=== PATIENT | female | born 1970 | race African-American/Black ===

== ENCOUNTER 2018-09-10 16:06 | Emergency (ER) | payer OTHER, SELFPAY ==
--- OUTSIDE RECORDS SUMMARY | 2018-09-10 16:12 | XMS REPORT | Clinical Summary ---
:1970 Author Organization [facility] Address [address] [place] [address] Care Team Providers Name Role Phone Carole Valverde MD Primary Care Provider Allergies Active Allergy Reactions Severity Noted Date Comments Morphine Other (See Comments) 10/26/2016 Cardiac event, needed CPR. Sulfamethoxazole-Trime Diarrhea, Nausea And Medium 10/07/2014 thoprim Vomiting Medications Medication Sig Dispensed Refills Start Date End Date Status gabapentin Take 1 capsule 0 01/15/2017 Active (NEURONTIN) 300 mg by mouth. capsule HYDROcodone-acetami Take 1 tablet by 0 04/01/2017 Active nophen (NORCO) mouth every 8 10-325 mg per (eight) hours as tablet needed. clobetasol Apply 1 0 Active (TEMOVATE) 0.05 % application ointment topically as needed. efinaconazole 10 % Apply daily to 8 mL 1 04/05/2017 Active solution with affected toenail applicatorIndicatio 48 weeks ns: Onychomycosis of right great toe cholecalciferol, 2 times a week 8 tablet 3 04/09/2017 Active vitamin D3, 50,000 unit tablet TiZANidine TAKE 1 CAPSULE 0 08/18/2017 Active (ZANAFLEX) 2 MG BY MOUTH AT capsule NIGHT FOR 90 DAY(S) olmesartan Take 1 tablet 30 tablet 1 08/25/2018 Active (BENICAR) 20 MG (20 mg total) by 0 tablet mouth daily. tiZANidine Take 1-2 tablets 0 01/29/2017 Discontinued (ZANAFLEX) 2 MG by mouth nightly 8 tablet as needed. valsartan (DIOVAN) Take 1 tablet 30 tablet 2 07/02/2017 Discontinued 40 MG tablet (40 mg total) by 8 mouth daily. valsartan (DIOVAN) TAKE 1 TABLET 30 tablet 1 10/21/2017 Discontinued 40 MG tablet (40 MG TOTAL) BY 8 MOUTH DAILY. valsartan (DIOVAN) Take 1 tablet 30 tablet 3 04/23/2018 Discontinued 40 MG (40 mg total) by 8 tabletIndications: mouth daily. Essential hypertension losartan (COZAAR) Take 1 tablet 30 tablet 1 06/27/2018 Discontinued 50 MG tablet (50 mg total) by 8 mouth daily. losartan (COZAAR) Take 1 tablet 30 tablet 1 06/30/2018 Discontinued 50 MG tablet (50 mg total) by 9 mouth daily. Active Problems Problem Noted Date Abnormal mammogram 09/12/2017 History of colon cancer 06/11/2017 Axillary adenopathy 06/11/2017 Discharge from right nipple 06/11/2017 Rotator cuff tendinitis, left 05/24/2017 Low back pain 05/24/2017 Rotator cuff tendinitis 04/19/2017 Trochanteric bursitis of left hip 04/19/2017 Multiple joint pain 04/19/2017 Breast lump in female Overview: right History of rectal cancer Wears glasses Teeth missing Immunizations up to date Encounters Date Type Specialty Care Team Description 08/25/2018 Telephone Internal Medicine Carole Valverde MD 06/30/2018 Refill Family Carole Alcaraz MD 06/26/2018 Telephone Family Medicine Carole Valverde MD 05/20/2018 Telephone Family Medicine Carole Valverde MD 05/19/2018 Telephone Family Medicine Carole Valverde Malignant neoplasm of MD Carlo colon, unspecified part of colon (HCC) (Primary Dx) 04/23/2018 Office Visit Family Medicine Carole Valverde Seasonal allergic rhinitis, unspecified trigger (Primary Dx); MD Carlo Essential hypertension 12/17/2017 Telephone Family Carole Alcaraz MD 10/20/2017 Refill Family Medicine Carole Valverde MD 10/09/2017 Telephone Family Medicine Carole Valverde Closed fracture of left wrist, initial encounter (Primary Dx); MD Carlo Malignant neoplasm of colon, unspecified part of colon; Multiple joint pain; Neuropathy 09/12/2017 Office Visit General Surgery Carla Finch Abnormal mammogram (Primary Dx); MD Chandni Axillary adenopathy after 09/09/2017 Immunizations Name Dates Previously Given Next Due Pneumococcal Conjugate 13-Valent 08/14/2016 Tdap 08/14/2016 Family History Medical History Relation Name Comments Breast cancer Cousin Paternal Breast cancer Cousin Paternal Cancer Father Jerzy Pantoja ? type Arthritis Mother Breast cancer Paternal Aunt Mental retardation Sister Relation Name Status Comments Cousin Cousin Father Jerzy Pantoja Mother Alive Paternal Aunt Sister Social History Tobacco Use Types Packs/Day Years Used Date Never Smoker Smokeless Tobacco: Never Used Tobacco Cessation: Counseling Given: No Alcohol Use Drinks/Week oz/Week Comments No Sex Assigned at Date Recorded Not on file Job Start Date Occupation Industry Not on file Not on file Not on file Travel History Travel Start Travel End No recent travel history available. Last Filed Vital Signs Vital Sign Reading Time Taken Blood Pressure 155/96 04/23/2018 8:44 AM CDT Pulse 69 04/23/2018 8:44 AM CDT Temperature 36.6 C (97.9 F) 04/23/2018 8:44 AM CDT Respiratory Rate - - Oxygen Saturation 98% 04/23/2018 8:44 AM CDT Inhaled Oxygen Concentration - - Weight 90.3 kg (199 lb) 04/23/2018 8:44 AM CDT Height 166.4 cm (5' 5.5") 04/23/2018 8:44 AM CDT Body Mass Index 32.61 04/23/2018 8:44 AM CDT Plan of Treatment Date Type Specialty Care Team Description 09/24/2018 Office Visit Family Medicine Carole Valverde MD [address] [facility] [address] [place] [address] Health Maintenance Due Date Last Done Comments CERVICAL CANCER SCREENING 1991 INFLUENZA VACCINE 02/19/2018 Results Not on fileafter 09/09/2017 Insurance Payer Benefit Plan / Group Subscriber ID Type Phone Address [employer] [facility] xxxxxxxxxxxx HMO Advance Directives Patient has advance care planning documents on file. For more information, please contact:Parveen Mallory[address] [place] [address]
--- NOTE | 2018-09-10 17:58 | RAD REPORT ---
EXAM DESCRIPTION: CT - Head Brain Wo Cont - 09/10/2018 5:41 pm CLINICAL HISTORY: HEADACHE COMPARISON: Head C Spine Cap W Con dated 05/15/2017HEAD BRAIN W O CONTRAST dated 08/27/2012; HEAD BRA IN W O CONTRAST dated 09/28/2011 TECHNIQUE: All CT scans are performed using dose optimization technique as appropriate and may inclu de automated exposure control or mA/KV adjustment according to patient size. FINDINGS: No intracranial hemorrhage, hydrocephalus or extra-axial fluid collection.No areas of brai n edema or evidence of midline shift. The paranasal sinuses and mastoids are clear. The calvarium is intact. IMPRESSION: No acute intracranial abnormality.
[2018-09-10] MEDS ORDERED: DIAZEPAM 5 MG TABLET ONE (18:35)
[2018-09-10] MEDS ORDERED: KETOROLAC 30 MG/ML INJ ONE (18:36)
--- NOTE | 2018-09-10 19:26 | ER ---
Nurse's Notes [facility] Name: Trisha Ashton Age: 48 yrs Sex: Female : 1970 Arrival Date: 09/10/2018 Time: 16:08 Bed 27 Private MD: Out, [facility] Diagnosis: Strain of muscle, fascia and tendon at neck level;Strain of muscle and tendon of back wall of thorax;Headache Presentation: 09/10 16:10 Presenting complaint: Patient states: i started with a headache 2 days ago, it has tw2 gotten worse, it goes down into my neck into my spine into my shoulders and neck, worse in the left side, tingling down into my left, when i breath deep it hurts in between my shoulder blades. Transition of care: patient was not received from another setting of care. Onset of symptoms was September 10, 2018. Risk Assessment: Do you want to hurt yourself or someone else? Patient reports no desire to harm self or others. Initial Sepsis Screen: Does the patient meet any 2 criteria? No. Patient's initial sepsis screen is negative. Does the patient have a suspected source of infection? No. Patient's initial sepsis screen is negative. Care prior to arrival: None. 16:10 Method Of Arrival: Ambulatory tw2 16:10 Acuity: GARRETT 3 tw2 Triage Assessment: 16:12 Headache History: The patient has had previous headaches and this one is similar to tw2 previous episodes. General: Appears uncomfortable, Behavior is calm, cooperative, appropriate for age. Pain: Pain currently is 9 out of 10 on a pain scale. Pain began 2-3 days ago. Also complains of nausea. Neuro: Level of Consciousness is awake, alert, obeys commands, Oriented to person, place, time, situation, Reports dizziness, headache lightheaded. 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 - Social history:: Smoking status: Patient/guardian denies using tobacco. - Ebola Screening: : Patient denies travel to an Ebola-affected area in the 21 days before illness onset. Screenin:30 Abuse screen: Denies threats or abuse. Denies injuries from another. Nutritional sg screening: No deficits noted. Tuberculosis screening: No symptoms or risk factors identified. Never had TB. Fall Risk None identified. Assessment: 16:30 General: Appears in no apparent distress. comfortable, well groomed, well developed, sg well nourished, Behavior is calm, cooperative, appropriate for age. Pain: Complains of pain in head Pain does not radiate. Quality of pain is described as aching, sharp. Neuro: Level of Consciousness is awake, alert, obeys commands, Oriented to person, place, time, situation, Sql Architect are equal bilaterally Moves all extremities. Full function Gait is steady, Speech is normal, Facial symmetry appears normal, Reports headache in entire frontal area, photophobia. Cardiovascular: Capillary refill is brisk in bilateral fingers Patient's skin is warm and dry. Chest pain is denied. Respiratory: Airway is patent Respiratory effort is even, unlabored, Respiratory pattern is regular, symmetrical. GI: No signs and/or symptoms were reported involving the gastrointestinal system. : No signs and/or symptoms were reported regarding the genitourinary system. EENT: No signs and/or symptoms were reported regarding the EENT system. Derm: Skin is pink, warm \\T\\ dry. Musculoskeletal: No signs and/or symptoms reported regarding the musculoskeletal system. 17:30 Reassessment: Patient appears in no apparent distress at this time. Patient and/or sg family updated on plan of care and expected duration. Pain level reassessed. pt family, spouse remains at bedside at this time, awaiting results, awaiting new orders, will continue to monitor. 18:10 Reassessment: Brad MARK at bedside updating pt on POC and results, awaiting orders sg at this time. 18:30 Reassessment: pt reports " well i guess we are going to have to do some rearranging, sg since no one ever came and did an IV." pt educated that no orders were received to initiate IV access, pt states " Oh yes, there was order to start IV before I went to go down for CT." pt offered pain medication as ordered, informed of pt rights to refuse medications as ordered, pt stated "oh no, im gonna take the medicines." Charge nurse notified. 19:43 Reassessment: Patient appears in no apparent distress at this time. Patient is alert, aa1 oriented x 3, equal unlabored respirations, skin warm/dry/pink. Discussed d/c \\T\\ f/u instructions with pt \\T\\ spouse; denies questions or concerns at this time Patient states feeling better. Vital Signs: 16:13 BP 120 / 72; Pulse 58; Resp 16; Temp 97.8(TE); Pulse Ox 100% on R/A; Weight 88.45 kg tw2 (R); Pain 9/10; 19:43 BP 123 / 69; Pulse 61; Resp 16; Temp 97.9; Pulse Ox 100% on R/A; Pain 5/10; aa1 ED Course: 16:08 Patient arrived in ED. mr 16:09 Out, [facility] is Private Physician. mr 16:12 Triage completed. tw2 16:13 Arm band placed on. tw2 16:30 Patient has correct armband on for positive identification. Bed in low position. Pulse sg ox on. NIBP on. 16:47 Ruslan Castro NP is PHCP. pm1 16:47 Stefan Cannon MD is Attending Physician. pm1 17:20 Momo Bolanos, JENNIFER is Primary Nurse. sg 17:[address] Scan. sg 17:42 CT Head Brain wo Cont In Process Unspecified. EDMS 17:43 CT completed. Patient tolerated procedure well. Patient moved back from CT. nj 19:43 No provider procedures requiring assistance completed. Patient did not have IV access aa1 during this emergency room visit. Administered Medications: 18:29 Drug: Valium 5 mg Route: PO; sg 19:42 Follow up: Response: No adverse reaction; Pain is decreased aa1 18:30 Drug: TORadol 60 mg Route: IM; Site: right deltoid; sg 19:42 Follow up: Response: No adverse reaction; Pain is decreased aa1 Outcome: 19:25 Discharge ordered by . pm1 19:43 Discharged to home ambulatory, with significant other. aa1 19:43 Condition: good 19:43 Discharge instructions given to patient, significant other, Instructed on discharge instructions, follow up and referral plans. medication usage, Demonstrated understanding of instructions, follow-up care, medications, Prescriptions given X 2. 19:45 Patient left the ED. aa1 Signatures: Dispatcher [employer] EDMS Momo Bolanos RN RN sg Kern, Alissa, RN RN aa1 Joaquina Soriano Patrick, ANALYTICAL RESEARCH PROGRAM MANAGER ANALYTICAL RESEARCH PROGRAM MANAGER pm1 Cheryle Bridges RN RN tw2 Forrest Riley
--- NOTE | 2018-09-10 19:26 | EDPHYS ---
Physician Documentation [facility] Name: Trisha Ashton Age: 48 yrs Sex: Female : 1970 Arrival Date: 09/10/2018 Time: 16:08 Bed 27 Private MD: Out, [facility] ED Physician Stefan Cannon HPI: 09/10 18:30 This 48 yrs old Black Female presents to ER via Ambulatory with complaints of Headache, pm1 Dizziness, Numbness Of Arm. 18:30 The patient complains of pain to the left base of the skull and right base of the pm1 skull. The patient describes the headache as aching, constant. 18:30 Onset: The symptoms/episode began/occurred 2 day(s) ago. Associated signs and symptoms: pm1 Pertinent negatives: dizziness, fever, neck stiffness, Photophobia rash, sinus congestion, sinus tenderness, vision changes, vision loss, vomiting, weakness, vertigo. Severity of symptoms: in the emergency department the pain is unchanged. Headache History: Denies prior headaches. The symptoms are alleviated by remaining still, the symptoms are aggravated by Turning head to side to side. Worse with moving head to right side. The patient has not experienced similar symptoms in the past. The patient has not recently seen a physician. 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 - Social history:: Smoking status: Patient/guardian denies using tobacco. - Ebola Screening: : Patient denies travel to an Ebola-affected area in the 21 days before illness onset. ROS: 18:30 Constitutional: Negative for fever, chills, and weight loss, Eyes: Negative for injury, pm1 pain, redness, and discharge, ENT: Negative for injury, pain, and discharge. 18:30 Cardiovascular: Negative for chest pain, palpitations, and edema, Respiratory: Negative for shortness of breath, cough, wheezing, and pleuritic chest pain, Abdomen/GI: Negative for abdominal pain, nausea, vomiting, diarrhea, and constipation. 18:30 : Negative for injury, bleeding, discharge, and swelling, MS/Extremity: Negative for injury and deformity, Skin: Negative for injury, rash, and discoloration, Neuro: Negative for headache, weakness, numbness, tingling, and seizure. 18:30 Neck: Positive for pain with movement, Pain, Negative for stiffness, swollen nodes. 18:30 Back: Positive for of the left trapezius and right trapezius, Pain. Exam: 18:30 Constitutional: This is a well developed, well nourished patient who is awake, alert, pm1 and in no acute distress. Head/Face: Normocephalic, atraumatic. Eyes: Pupils equal round and reactive to light, extra-ocular motions intact. Lids and lashes normal. Conjunctiva and sclera are non-icteric and not injected. Cornea within normal limits. Periorbital areas with no swelling, redness, or edema. ENT: Nares patent. No nasal discharge, no septal abnormalities noted. Tympanic membranes are normal and external auditory canals are clear. Oropharynx with no redness, swelling, or masses, exudates, or evidence of obstruction, uvula midline. Mucous membranes moist. 18:30 Chest/axilla: Normal chest wall appearance and motion. Nontender with no deformity. No lesions are appreciated. Cardiovascular: Regular rate and rhythm with a normal S1 and S2. No gallops, murmurs, or rubs. Normal PMI, no JVD. No pulse deficits. Respiratory: Lungs have equal breath sounds bilaterally, clear to auscultation and percussion. No rales, rhonchi or wheezes noted. No increased work of breathing, no retractions or nasal flaring. Abdomen/GI: Soft, non-tender, with normal bowel sounds. No distension or tympany. No guarding or rebound. No evidence of tenderness throughout. 18:30 Skin: Warm, dry with normal turgor. Normal color with no rashes, no lesions, and no evidence of cellulitis. MS/ Extremity: Pulses equal, no cyanosis. Neurovascular intact. Full, normal range of motion. 18:30 Neck: External neck: tenderness, that is moderate, of the left trapezius and right trapezius, C-spine: vertebral tenderness, is not appreciated. 18:30 Back: normal spinal alignment noted, vertebral tenderness, is not appreciated, muscle spasm, is appreciated in the left trapezius, right trapezius and left scapular area. 18:30 Neuro: Orientation: is normal, Cranial nerves: CN II- XII are normal as tested, Cerebellar function: normal finger to nose testing, heel to dumas testing is normal, Motor: moves all fours, strength is 5/5 in all extremities, Sensation: is normal, no obvious gross deficits. Vital Signs: 16:13 BP 120 / 72; Pulse 58; Resp 16; Temp 97.8(TE); Pulse Ox 100% on R/A; Weight 88.45 kg tw2 (R); Pain 9/10; 19:43 BP 123 / 69; Pulse 61; Resp 16; Temp 97.9; Pulse Ox 100% on R/A; Pain 5/10; aa1 MDM: 16:48 Patient medically screened. pm1 19:24 Data reviewed: vital signs. Data interpreted: Pulse oximetry: on room air is 100 %. pm1 Interpretation: normal. Counseling: I had a detailed discussion with the patient and/or guardian regarding: the historical points, exam findings, and any diagnostic results supporting the discharge/admit diagnosis, radiology results, the need for outpatient follow up, to return to the emergency department if symptoms worsen or persist or if there are any questions or concerns that arise at home. 09/10 17:10 Order name: CT Head Brain wo Cont; Complete Time: 18:04 pm1 Administered Medications: 18:29 Drug: Valium 5 mg Route: PO; sg 19:42 Follow up: Response: No adverse reaction; Pain is decreased aa1 18:30 Drug: TORadol 60 mg Route: IM; Site: right deltoid; sg 19:42 Follow up: Response: No adverse reaction; Pain is decreased aa1 Disposition: 09/11 07:16 Co-signature as Attending Physician, Stefan Cannon MD Available for consultation at ps1 all times. . Disposition: 09/10/18 19:25 Discharged to Home. Impression: Strain of muscle, fascia and tendon at neck level, Strain of muscle and tendon of back wall of thorax, Headache. - Condition is Stable. - Discharge Instructions: General Headache Without Cause, Muscle Strain. - Prescriptions for Valium 5 mg Oral Tablet - take 1 tablet by ORAL route every 8 hours As needed; 20 tablet. Diclofenac Sodium 75 mg Oral Tablet Sustained Release - take 1 tablet by ORAL route 2 times per day; 30 tablet. - Medication Reconciliation Form, Thank You Letter, Antibiotic Education, Prescription Opioid Use form. - Follow up: Emergency Department; When: As needed; Reason: Worsening of condition. Follow up: Private Physician; When: 2 - 3 days; Reason: Recheck today's complaints, Continuance of care, Re-evaluation by your physician. - Problem is new. - Symptoms have improved. Signatures: Dispatcher [employer] EDMS Momo Bolanos RN RN sg Alexa Luna RN RN aa1 Ruslan Castro NP SENIOR ORACLE ADF DEVELOPER pm1 Cheryle Bridges RN RN tw2 Stefan Cannon MD MD ps1 Corrections: (The following items were deleted from the chart) 09/10 19:25 19:25 09/10/2018 19:25 Discharged to Home. Impression: Strain of muscle, fascia and pm1 tendon at neck level; Strain of muscle and tendon of back wall of thorax. Condition is Stable. Forms are Medication Reconciliation Form, Thank You Letter, Antibiotic Education, Prescription Opioid Use. Follow up: Emergency Department; When: As needed; Reason: Worsening of condition. Follow up: Private Physician; When: 2 - 3 days; Reason: Recheck today's complaints, Continuance of care, Re-evaluation by your physician. Problem is new. Symptoms have improved. pm1 19:45 19:25 09/10/2018 19:25 Discharged to Home. Impression: Strain of muscle, fascia and aa1 tendon at neck level; Strain of muscle and tendon of back wall of thorax; Headache. Condition is Stable. Forms are Medication Reconciliation Form, Thank You Letter, Antibiotic Education, Prescription Opioid Use. Follow up: Emergency Department; When: As needed; Reason: Worsening of condition. Follow up: Private Physician; When: 2 - 3 days; Reason: Recheck today's complaints, Continuance of care, Re-evaluation by your physician. Problem is new. Symptoms have improved. pm1
[2018-09-10 20:32] VITALS: O2SAT 100
[2018-09-10 20:34] VITALS: BP 123/69; TEMP 97.9
== END 2018-09-10 19:45 | disposition home or self-care (01) ==
LOC: ER 16:06
DX: S16.1XXA Strain of muscle, fascia and tendon at neck level, initial encounter (principal); S29.012A Strain of muscle and tendon of back wall of thorax, initial encounter; Z88.1 Allergy status to other antibiotic agents; Z88.5 Allergy status to narcotic agent; Z85.038 Personal history of other malignant neoplasm of large intestine; Z85.048 Personal history of other malignant neoplasm of rectum, rectosigmoid junction, and anus
CPT/HCPCS: 70450; 96372; 99284

== ENCOUNTER 2019-07-30 20:44 | Emergency (ER) | payer BC, SELFPAY ==
[2019-07-30] MEDS ORDERED: DIAZEPAM 5 MG TABLET ONE (22:06)
--- NOTE | 2019-07-30 22:48 | EDPHYS ---
Physician Documentation [facility] Name: Trisha Ashton Age: 49 yrs Sex: Female : 1970 Arrival Date: 07/30/2019 Time: 20:48 Bed 24 Private MD: MENDEZ Physician Ananda Mead HPI: 07/30 21:55 This 49 yrs old Black Female presents to ER via Ambulatory with complaints of Arm Pain. jmm 21:55 The patient or guardian complains of pain, that is acute. Onset: The symptoms/episode jmm began/occurred gradually, 1 month(s) ago. Modifying factors: The symptoms are alleviated by nothing. the symptoms are aggravated by nothing. Associated signs and symptoms: Pertinent negatives: fever. This is a 49 year old female with a history of colorectal cancer, that presents to the ED with complaints of right arm pain which initially began 1 month ago. Pain intensified this evening. Pain radiates from the mid humeral region down the right arm into the hands. Patient denies known injury. . 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 - Social history:: Smoking status: unknown. - Ebola Screening: : No symptoms or risks identified at this time. ROS: 21:55 Constitutional: Negative for fever, chills, and weight loss, Cardiovascular: Negative jmm for chest pain, palpitations, and edema, Respiratory: Negative for shortness of breath, cough, wheezing, and pleuritic chest pain. 21:55 MS/extremity: Positive for pain. 21:55 All other systems are negative. Exam: 21:55 Constitutional: This is a well developed, well nourished patient who is awake, alert, jmm and in no acute distress. Head/Face: atraumatic. Eyes: EOMI, no conjunctival erythema appreciated ENT: Moist Mucus Membranes Neck: Trachea midline, Supple Chest/axilla: Normal chest wall appearance and motion. Cardiovascular: Regular rate and rhythm. No edema appreciated Respiratory: Normal respirations, no respiratory distress appreciated Abdomen/GI: Non distended, soft Back: Normal ROM Skin: General appearance color normal 21:55 Musculoskeletal/extremity: full head of digital advertising & integration strength appreciated to the right hand, full radial pulse, pain is elicited on palpation of the mid humeral region. compartments are soft, NVI. Vital Signs: 21:24 BP 144 / 84; Pulse 60; Resp 14 S; Temp 98.2(O); Pulse Ox 99% on R/A; Weight 81.65 kg bb (R); Height 5 ft. 5 in. (165.10 cm) (R); Pain 8/10; 21:24 Body Mass Index 29.95 (81.65 kg, 165.10 cm) bb MDM: 21:24 Patient medically screened. tejas 22:45 Data reviewed: vital signs, nurses notes. Counseling: I had a detailed discussion with [facility] the patient and/or guardian regarding: the historical points, exam findings, and any diagnostic results supporting the discharge/admit diagnosis, radiology results, the need for outpatient follow up, to return to the emergency department if symptoms worsen or persist or if there are any questions or concerns that arise at home. ED course: US is negative. Pain may be due to bursitis. Patient advised to follow up with ortho for reevaluation. Otherwise given strict return precautions. Patient understood and agrees with the plan of care. . 07/30 21:36 Order name: US Extremity Venous Unilateral Ltd [facility] 07/30 22:45 Order name: Mandy; Complete Time: 04:37 [facility] Administered Medications: 22:10 Drug: Valium 5 mg Route: PO; ea Disposition: 07/31 08:36 Co-signature as Attending Physician, Aannda Mead MD I agree with the assessment and [facility] plan of care. Disposition: 07/30/19 22:47 Discharged to Home. Impression: Other bursitis, not elsewhere classified, right elbow. - Condition is Stable. - Discharge Instructions: Bursitis. - Prescriptions for Valium 5 mg Oral Tablet - take 1 tablet by ORAL route every 8 hours As needed; 20 tablet. - Medication Reconciliation Form, Thank You Letter, Antibiotic Education, Prescription Opioid Use, Work release form, Family Work Release form. - Follow up: Momo Blackburn MD; When: 2 - 3 days; Reason: Recheck today's complaints, Continuance of care, Re-evaluation by your physician. Signatures: Dispatcher [employer] EDAnanda Escobedo MD MD cha Mickail, Joel, PA PA jmm Ballard, Brenda, RN RN Lauren Roberts RN RN ea Corrections: (The following items were deleted from the chart) 07/30 23:18 22:47 07/30/2019 22:47 Discharged to Home. Impression: Other bursitis, not elsewhere ea classified, right elbow. Condition is Stable. Forms are Medication Reconciliation Form, Thank You Letter, Antibiotic Education, Prescription Opioid Use. Follow up: Moom Blackburn; When: 2 - 3 days; Reason: Recheck today's complaints, Continuance of care, Re-evaluation by your physician. portia
--- NOTE | 2019-07-30 22:48 | ER ---
Nurse's Notes [facility] Name: Trisha Ashton Age: 49 yrs Sex: Female : 1970 Arrival Date: 07/30/2019 Time: 20:48 Bed 24 Private MD: Diagnosis: Other bursitis, not elsewhere classified, right elbow Presentation: 07/30 21:23 Presenting complaint: Patient states: she is having right arm pain and numbness to bb fingers intermittently for several months. Transition of care: patient was not received from another setting of care. Onset of symptoms is unknown. Risk Assessment: Do you want to hurt yourself or someone else? Patient reports no desire to harm self or others. Initial Sepsis Screen: Does the patient meet any 2 criteria? No. Patient's initial sepsis screen is negative. Does the patient have a suspected source of infection? No. Patient's initial sepsis screen is negative. Care prior to arrival: None. 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 - Social history:: Smoking status: unknown. - Ebola Screening: : No symptoms or risks identified at this time. Screenin:15 Abuse screen: Denies threats or abuse. Nutritional screening: No deficits noted. ea Tuberculosis screening: No symptoms or risk factors identified. Fall Risk None identified. Assessment: 21:30 General: Appears in no apparent distress. Behavior is calm, cooperative, appropriate ea for age. Pain: Complains of pain in right arm. Neuro: Level of Consciousness is awake, alert, obeys commands, Oriented to person, place, time. Cardiovascular: Respiratory: Airway is patent Respiratory effort is even, unlabored, Respiratory pattern is regular, symmetrical. Derm: Skin is pink, warm \T\ dry. 22:30 Reassessment: Patient and/or family updated on plan of care and expected duration. Pain ea level reassessed. Patient is alert, oriented x 3, equal unlabored respirations, skin warm/dry/pink. 23:00 Reassessment: Patient and/or family updated on plan of care and expected duration. Pain ea level reassessed. Patient is alert, oriented x 3, equal unlabored respirations, skin warm/dry/pink. Discharge instruction given to patient, verbalized the understanding of instruction. Pt left ED ambulatory accompanied by family. Vital Signs: 21:24 BP 144 / 84; Pulse 60; Resp 14 S; Temp 98.2(O); Pulse Ox 99% on R/A; Weight 81.65 kg bb (R); Height 5 ft. 5 in. (165.10 cm) (R); Pain 8/10; 21:24 Body Mass Index 29.95 (81.65 kg, 165.10 cm) bb ED Course: 20:48 Patient arrived in ED. cl3 21:23 Prashant Sen PA is PHCP. [facility] 21:23 Ananda Mead MD is Attending Physician. [facility] 21:23 Triage completed. bb 21:24 Arm band placed on Patient placed in an exam room, on a stretcher, on pulse oximetry. bb 21:30 Patient has correct armband on for positive identification. Bed in low position. Call ea light in reach. 21:38 Lauren Frank, RN is Primary Nurse. ea 22:12 Extremity Venous Unilateral Ltd In Process Unspecified. EDMS 22:47 Momo Blackburn MD is Referral Physician. [facility] 23:00 No provider procedures requiring assistance completed. Patient did not have IV access ea during this emergency room visit. Administered Medications: 22:10 Drug: Valium 5 mg Route: PO; ea Outcome: 22:47 Discharge ordered by . portia 23:10 Discharged to home ambulatory, with family. ea 23:10 Condition: stable 23:10 Discharge instructions given to patient, family, Instructed on discharge instructions, follow up and referral plans. medication usage, Demonstrated understanding of instructions, follow-up care, medications. 23:18 Patient left the ED. ea Signatures: Dispatcher [employer] EDMS Prashant Sen PA PA jmm Ballard, Brenda, RN RN Lauren Roberts RN RN Kristen Montano cl3
[2019-07-30 23:44] VITALS: BP 144/84; TEMP 98.2; O2SAT 99
--- NOTE | 2019-07-31 08:38 | RAD REPORT ---
EXAM DESCRIPTION: US - Extremity Venous Uni Ltd - 07/30/2019 10:12 pm CLINICAL HISTORY: Right arm pain and swelling COMPARISON: None. TECHNIQUE: Real-time sonographic evaluation of the right upper extremity deep venous systems was per formed. FINDINGS: Normal compressibility, flow augmentation, phasic flow and spontaneous flow are identified in the right upper extremity deep venous system. No intraluminal filling defects seen. Internal jugu lar and subclavian veins are normal as well. IMPRESSION: No DVT in the right upper extremity.
== END 2019-07-30 23:18 | disposition home or self-care (01) ==
LOC: ER 20:44
DX: M71.521 Other bursitis, not elsewhere classified, right elbow (principal); Z85.038 Personal history of other malignant neoplasm of large intestine; Z88.1 Allergy status to other antibiotic agents; Z88.5 Allergy status to narcotic agent
CPT/HCPCS: 93971; 99283

== ENCOUNTER 2020-04-16 09:21 | Emergency (ER) | payer BC ==
--- OUTSIDE RECORDS SUMMARY | 2020-04-16 09:23 | XMS REPORT | Clinical Summary ---
:1970 Author Organization [facility] Address [address] [place] [address] Care Team Providers Name Role Phone Millie Kenyon Primary Care Provider Allergies Active Allergy Reactions Severity Noted Date Comments Sulfamethoxazole-Trimethopr 06/10/2014 im Sulfamethoxazole-Trimethopr Diarrhea, Nausea And Vomiting Medium 10/07/2014 im Medications Medication Sig Dispensed Refills Start Date End Date Status fluticasone (FLONASE) 2 sprays by Nasal 0 Active 50 mcg/actuation route daily. nasal spray HYDROcodone-acetamino Take 1 tablet by 0 Active phen (NORCO 5-325) mouth every 4 5-325 mg per tablet (four) hours as needed for Pain. desonide (DESOWEN) Apply 0.05 0 Active 0.05 % application ointmentIndications: topically 2 (two) inflammation of the times daily. skin due to an allergy clobetasol (TEMOVATE) Apply 60 g 0 Active 0.05 % ointment topically 2 (two) times daily. Prn to scaly areas of body and legs Active Problems Not on file Social History Tobacco Use Types Packs/Day Years Used Date Never Smoker Alcohol Use Drinks/Week oz/Week Comments Yes occasionally Sex Assigned at Date Recorded Not on file Job Start Date Occupation Industry Not on file Not on file Not on file Travel History Travel Start Travel End No recent travel history available. Last Filed Vital Signs Not on file Plan of Treatment Not on file Procedures Procedure Name Priority Date/Time Associated Diagnosis Comme nts CARDIAC CATH REPORT - 10/14/2019 8:51 AM CDT SCAN CARDIAC CATH REPORT - 10/14/2019 8:50 AM CDT SCAN after 04/16/2019 Results CARDIAC CATH REPORT - SCAN (10/14/2019 8:51 AM CDT) Narrative Performed At This result has an attachment that is no t available. CARDIAC CATH REPORT - SCAN (10/14/2019 8:50 AM CDT) Narrative Performed At This result has an attachment that is no t available. after 04/16/2019 Insurance Payer Benefit Plan / Group Subscriber ID Type Phone A ddress [facility] [employer] xxxxxxxxx HMO/POS CARE CHOICE [facility] SELECT xxxxxxxxx HMO/POS CARE CHOICE [id number] [place] [address] ([place]) [place] [address]
--- OUTSIDE RECORDS SUMMARY | 2020-04-16 09:23 | XMS REPORT | Clinical Summary ---
:1970 Author Organization [facility] Address [address] [place] [address] Care Team Providers Name Role Phone Carlo Valverde MD Primary Care Provider Allergies Active Allergy Reactions Severity Noted Date Comments Methylprednisolone GI Intolerance 08/14/2019 Morphine Other (See Comments) 10/26/2016 Cardiac event, needed CPR. Sulfamethoxazole-Trimethopri Diarrhea, Nausea And Medium 09/19 m Vomiting Medications Medication Sig Dispensed Refills Start End Date Status Date gabapentin Take 1 capsule 0 Acti ve (NEURONTIN) 300 mg by mouth. 7 capsule clobetasol Apply 1 0 Active (TEMOVATE) 0.05 % application ointment topically as needed. TiZANidine TAKE 1 CAPSULE 0 Acti ve (ZANAFLEX) 2 MG BY MOUTH AT 8 capsule NIGHT FOR 90 DAY(S) amLODIPine Take 1 tablet 30 tablet 1 Activ e (NORVASC) 5 mg (5 mg total) by 0 tabletIndications: mouth daily. Essential hypertension cholecalciferol, Take 1 tablet 4 tablet 1 Active vitamin D3, 1,250 once per week 0 mcg (50,000 unit) tablet diclofenac Apply 4 grams 200 g 1 Activ e (VOLTAREN) 1 % to affected 0 gelIndications: joint 4x/day Chronic left hip pain HYDROcodone-acetam Take 1 tablet 0 0 Discontinued inophen (NORCO) by mouth every 7 20 (Med List 10-325 mg per 8 (eight) hours Cleanup) tablet as needed. olmesartan Take 1 tablet 30 tablet 3 04/30/20 Disco ntinued (BENICAR) 20 MG (20 mg total) 9 19 (Side effects) tabletIndications: by mouth daily. Essential hypertension cholecalciferol, 2 times a week 8 tablet 3 05/03/20 Discontinued vitamin D3, 50,000 9 19 ( Reorder) unit tablet amLODIPine Take 1 tablet 30 tablet 3 10/20/19 Disco ntinued (NORVASC) 5 mg (5 mg total) by 9 20 (Reorder) tabletIndications: mouth daily. Essential hypertension cholecalciferol, Take 1 tablet 8 tablet 3 05/03/20 Discontinued vitamin D3, 50,000 once per week 9 19 unit tablet cholecalciferol, Take 1 tablet 0 10/20/19 Discontinued vitamin D3, 50,000 once per week 9 20 (Reorder) unit tablet indomethacin Take 1 capsule 30 capsule 0 08/24/19 E xpired (INDOCIN) 50 MG (50 mg total) 0 20 capsule by mouth 3 (three) times a day with meals for 10 days. diclofenac Apply 2 grams 100 g 1 03/03/20 Disco ntinued (VOLTAREN) 1 % to affected 0 20 (Re order) gelIndications: joint 4x/day Lateral epicondylitis of right elbow Active Problems Problem Noted Date Pain of both breasts 06/22/2019 Papilloma of right breast - nipple mass excised on 08/2206/22/2019 Abnormal mammogram 09/12/2017 History of colon cancer [...] Encounters Date Type Specialty Care Team Description 03/22/2020 Travel 03/21/2020 Telephone Family Carole Alcaraz History of rectal cancer (Primary Dx); MD Carlo Colon cancer sc reening 03/14/2020 Telephone [facility] Carole Alcaraz Multipl e joint pain MD Carlo (Primary Dx) 03/14/2020 Travel 03/14/2020 Transcribe Orders Radiology Saige Khoury Radicu lopathyJono MD lumbosacral reg ion (Primary Dx) 03/04/2020 Orders Only [facility] Carole Alcaraz MD 03/03/2020 Office Visit [facility] Carole Alcaraz Chronic left hip pain (Primary Dx); MD Carlo Lumbar degenera tive disc disease; Degenerative di sc disease, cervical; History of rect al cancer; Colon cancer sc reening 03/03/2020 Travel 11/09/2019 Telephone [facility] Carole Alcaraz MD 10/20/2019 Refill [facility] Carole Alcaraz al hypertension MD Carlo 08/14/2019 Office Visit [facility] Carole Alcaraz Lateral epicondylitis MD Carlo of right elbow (Primary Dx) 08/05/2019 Telephone [facility] Carole Alcaraz MD 06/22/2019 Office Visit General Surgery Josette Carla Pain of both breasts (Primary Dx); MD Chandni Papilloma of ri ght breast - nipple mass excised on 09/04/2017 05/12/2019 Telephone [facility] Carole Alcaraz History of rectal MD Carlo cancer (Primary Dx) 05/08/2019 Telephone [facility] Carole Alcaraz History of rectal MD Carlo cancer (Primary Dx) 05/03/2019 Orders Only [facility] Carole Alcaraz MD 04/30/2019 Lab Lab Carole Valverde Essential hypertension; MD Carlo Vitamin D defic iency 04/30/2019 Office Visit Carole Dixon al hypertension (Primary Dx); MD Carlo Vitamin D defic iency; Lumbar degenera tive disc disease; Breast mass, ri ght; Immunization du e 04/27/2019 Telephone [facility] Carole Alcaraz MD after 04/16/2019 Immunizations Name Administration Dates Next Due FLUBLJOHANNE QUAD PF 04/30/2019 Pneumococcal Conjugate 13-Valent 08/14/2016 Tdap 08/14/2016 Family [...] Tobacco: Never Used Tobacco Cessation: Counseling Given: Yes Alcohol Use Drinks/Week oz/Week Comments No Sex Assigned at Date Recorded Not on file COVID-19 Exposure Response Date Recorded In the last month, have you been in contact with No / Unsure 03/22/2020 8:00 AM CDT someone who was confirmed or suspected to have Coronavirus / COVID-19? 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 Rate 16 03/03/2020 3:29 PM CDT Oxygen Saturation 100% 03/03/2020 3:29 PM CDT Inhaled Oxygen Concentration - - Weight 88.5 kg (195 lb) 03/03/2020 3:29 PM CDT Height 166.4 cm (5' 5.5") 03/03/2020 3:29 PM CDT Body Mass Index 31.96 03/03/2020 3:29 PM CDT Plan of Treatment Health Maintenance Due Date Last Done Comments INFLUENZA VACCINE 02/20/2020 04/30/2019 CERVICAL CANCER SCREENING 07/08/2020 07/08/2017 Procedures Procedure Name Priority Date/Time Associated Diagnosis Comme nts MRI LUMBAR SPINE WO Routine 03/22/2020 9:00 Radiculopathy, Re sults for this CONTRAST AM CDT lumbosacral region procedure are in the results section. XR HIP 3-4 VIEWS Routine 03/03/2020 4:21 Chronic left hip oren n Results for this BILATERAL PM CDT procedure are i n the results section. VITAMIN D 25 Routine 04/30/2019 12:23 Vitamin D deficiency Res ults for this HYDROXY LEVEL PM CDT procedure are in the results section. BASIC METABOLIC Routine 04/30/2019 12:23 Essential Results for this PANEL PM CDT hypertension procedure are i n the results section. after 04/16/2019 Results MRI Lumbar Spine Wo Contrast (03/22/2020 9:00 AM CDT) Specimen Narrative Performed At This result has an attachment that is no t available. EXAMINATION: MRI LUMBAR SPINE WO CONTRAST HM [facility] CLINICAL HISTORY: M54.17 Radiculopathy lumbosacral region, RADICULOPATHY LUMBOSACRAL REGION COMPARISON: Lumbar x-ray dated May 24, 2017 TECHNIQUE: Multiplanar multisequence non contrast enhanced examination was performed of the Lumbar spine. FINDINGS: Numbering assumes that the last visualized functional disc to be L5-S1. There is mild leftward curvature at L3-4 . There is normal lumbar lordosis. There is no spondylolisthesis. Vertebral body heights are maintained wi thout acute fracture. No focal significant marrow signal abnormality is appreciated. There are some fatty inferior L5 Marrow sacral marrow which may be secondary to pelvic radiation changes. Clinically correlate. Soft tissues shows no mass, adenopathy or aneurysm. The partially visualized spinal cord and the conus are unremarkable. Axial images through the disc spaces demonstrate the f ollowing: T12-L1: No significant posterior disc di sease, spinal canal, lateral recess or neural foraminal stenosis. L1-L2: There is a very shallow 1 mm left paracentral protrusion. There is no stenosis. The foramina are patent. L2-L3: No significant posterior disc dis ease, spinal canal, lateral recess or neural foraminal stenosis. L3-L4: There is minimal disc bulge and m ild facet hypertrophy. There is no canal or lateral recess narrowing. There is minimal effacement of the inferior foraminal fat without stenosis. L4-L5: There is mild disc bulge and face t hypertrophy with minimal narrowing of the lateral recess. The central thecal sac is widely patent. This osteophyte changes and minimal narrowing of the inferior foraminal fat without significant stenosis. L5-S1: There is mild disc bulge and face t hypertrophy with mild narrowing of the bilateral lateral recesses, right greater left. The central thecal sac is patent. Facet spurring and disk osteophyte rivera ges minimally effaced inferior foraminal fat without stenosis. The partially visualized upper sacrum is unremarkable. IMPRESSION: There is mild degenerative disc disease without significant stenosis. There is no acute osseous edema, fracture or spondylolisthesis. There is no abnormality appreciated to explain radiculopathy. [id number] Procedure Note Hm Interface, Radiology Results - 03/22/2020 9:41 AM CDT EXAMINATION: MRI LUMBAR SPINE WO CONTRAST CLINICAL HISTORY: M54.17 Radiculopathy lumbosacral region, RADICULOPATHY LUMBOSACRAL REGION COMPARISON: Lumbar x-ray dated May 24, 2017 TECHNIQUE: Multiplanar multisequence non contrast enhanced examination was performed of the Lumbar spine. FINDINGS: Numbering assumes that the last visualiz ed functional disc to be L5-S1. There is mild leftward curvature at L3-4 . There is normal lumbar lordosis. There is no spondylolisthesis. Vertebral body heights are maintained wi thout acute fracture. No focal significant marrow signal abnormality is appreciated. There are some fatty inferior L5 Marrow sacral marrow which may be secondary to pelvic radiation changes. Clinically correlate. Soft tissues shows no mass, adenopathy o r aneurysm. The partially visualized spinal cord and the conus are unremarkable. Axial images through the disc spaces dem onstrate the following: T12-L1: No significant posterior disc di sease, spinal canal, lateral recess or neural foraminal stenosis. L1-L2: There is a very shallow 1 mm left paracentral protrusion. There is no stenosis. The foramina are patent. L2-L3: No significant posterior disc dis ease, spinal canal, lateral recess or neural foraminal stenosis. L3-L4: There is minimal disc bulge and m ild facet hypertrophy. There is no canal or lateral recess narrowing. There is minimal effacement of the inferior foraminal fat without stenosis. L4-L5: There is mild disc bulge and face t hypertrophy with minimal narrowing of the lateral recess. The central thecal sac is widely patent. This osteophyte changes and minimal narrowing of the inferior foraminal fat without significant stenosis. L5-S1: There is mild disc bulge and face t hypertrophy with mild narrowing of the bilateral lateral recesses, right greater left. The central thecal sac is patent. Facet spurring and disk osteophyte changes minimally effaced inferior foraminal fat without stenosis. The partially visualized upper sacrum is unremarkable. IMPRESSION: There is mild degenerative disc disease without significant stenosis. There is no acute osseous edema, fracture or spondylolisthesis. There is no abnormality appreciated to explain radiculopathy. [id number] Performing Organization Address City/State/ZIP Code Phon e Number [facility] [address] [place] [address] XR Hip 3-4 Views Bilateral (03/03/2020 4:21 PM CDT) Specimen Narrative Performed At This result has an attachment that is no t available. EXAMINATION: XR HIP 3-4 VIEWS BILATERAL [facility] CLINICAL HISTORY: 49 years Female M 25.552 Pain in left hip, G89.29 Other chronic pain, Hip pain chronic initial exam COMPARISON: None available at this time. IMPRESSION: There is no evidence of fracture or dislocation. Minimal joint space narrowing superiorly, left greater than right Phleboliths in the lower pelvis No suspicious focal blastic or lytic lesions No radiopaque foreign bodies are present. Procedure Note Hm Interface, Radiology Results Incoming - 03/03/2020 4:40 PM CDT EXAMINATION: XR HIP 3-4 VIEWS BILATERAL CLINICAL HISTORY: 49 years Female M25 .552 Pain in left hip, G89.29 Other chronic pain, Hip pain chronic initial exam COMPARISON: None available at this time . IMPRESSION: There is no evidence of fracture or disl ocation. Minimal joint space narrowing superiorly , left greater than right Phleboliths in the lower pelvis No suspicious focal blastic or lytic les ions No radiopaque foreign bodies are present . Performing Organization Address City/[facility]/ZIP Code Phon e Number [facility] [address] [place] [address] Vitamin D 25 hydroxy level (04/30/2019 12:23 PM CDT) Vitamin D, 63.6 30.0 - 100.0 [facility] 25-hydroxy Comment: ng/mL Vitamin D deficiency has been defined by the [place] of [employer] and an Endocrine Society practice guideline a s a level of serum 25-OH vitamin D less than 20 ng/mL (1,2 ). The Endocrine Society went on to further define vitami n D insufficiency as a level between 21 and 29 ng/mL (2). 1. IOM ([place] of [employer]). 2010. Dietary referenc e intakes for calcium and D. Eduardo [place]: The National Academies Press. 2. Angela MF, Marty NC, Daylin PERRY, et al. Evaluation, treatment, and prevention of vitamin D deficiency: an Endocrine Society clinical practice guideline. JCEM. 2010; 96(7):1911-30. Specimen Blood Narrative Performed At Performed at: 01 - [facility] [address] [place], [place] [address] 143 Distresser: Julio Cesar Chen MD, Phone: [phone] Performing Organization Address City/[facility]/ZIP [facility] Phon e Number [facility] Basic metabolic panel (04/30/2019 12:23 PM CDT) Pathologist Sig nature Glucose 83 65 - 99 mg/dL [facility] BUN 11 6 - 24 mg/dL [facility] Creatinine 0.77 0.57 - 1.00 mg/dL [facility] EGFR Non-Afr. Iranian 92 >59 mL/min/1.73 [facility] EGFR 106 >59 mL/min/1.73 [facility] BUN/creatinine ratio 14 9 - 23 [facility] Sodium 144 134 - 144 mmol/L [facility] Potassium 3.8 3.5 - 5.2 mmol/L [facility] Chloride 101 96 - 106 mmol/L [facility] CO2 23 20 - 29 mmol/L [facility] Calcium 9.7 8.7 - 10.2 mg/dL [facility] Specimen Blood Narrative Performed At Performed at: 01 - [facility] [address] [place], [place] [address] 143 Distresser: Julio Cesar Chen MD, Phone: [phone] Performing Organization Address [facility] Phon e Number [facility] after 04/16/2019 Advance Directives For more information, please contact: [phone] Type Date Recorded 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
--- OUTSIDE RECORDS SUMMARY | 2020-04-16 09:24 | XMS REPORT | Continuity of Care Document ---
:1970 Author Organization [facility] t Address [address] [place] [address] Care Team Providers Name Role Phone Chantale Millie Primary Care Physician KELSEY Attending Clinician Unavailable Abram THOMAS, Carlo Attending Clinician Josette THOMAS, Chandni Attending Clinician Ja THOMAS Attending Clinician Charles MARIA Attending Clinician Payers Payer Name Policy Type Policy Effective Date Expiration Date Sour ce Number [employer] [place] [id number] 2017 [place] ARE[place]/HMO BLUE 0 00:00:00 [facility] [id number] 2017-PresentO BLUE CROSS BLUE [id number] 2017 MD Lin kori [facility] H[facility] 0 00:00:00 BLUE/BLUE [id number] 2017-PresentHMO Problems Condition Condition Condition Status Onset Resolution Last Treating Co mments Source Name Details Category Date Date Treatment Clinician Date Pain of Pain of Disease Active 2018-07 Saini both both 08-23 [facility] breasts breasts 00:00: st 00 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 08-23 Method i breast - breast - 00:00: st nipple nipple 00 mass mass excised on excised on 09/04/2017 09/04/2017 Abnormal Abnormal Disease Active [place] mammogram mammogram 09-12 Meth carmen 00:00: st 00 History of History of Disease Active 2016-07 Kostas ignacio colon colon 08-11 [facility] cancer cancer 00:00: st 00 Axillary Axillary Disease Active 2016-07 [place] adenopathy adenopathy 08-11 Me thodi 00:00: st 00 Discharge Discharge Disease Active 2016-07 Alessandra ston from right from right 08-11 Wy thodi nipple nipple 00:00: st 00 Rotator Rotator Disease Active 2016-07 Saini cuff cuff 07-24 [facility] tendinitis tendinitis 00:00: st , left , left 00 Low back Low back Disease Active 2016-07 [place] pain pain 07-24 Method[facility] 00:00: st 00 Rotator Rotator Disease Active Saini cuff cuff 04-19 [facility] tendinitis tendinitis 00:00: st 00 Trochanter Trochanter Disease Active Kostas ignacio ic ic 04-19 [facility] bursitis bursitis 00:00: st of left of left 00 hip hip Multiple Multiple Disease Active [place] joint pain joint pain 04-19 Me thodi 00:00: st 00 Rectal Rectal Disease Active MD cancer cancer 3-20 Anderso 00:00: n 00 Breast Breast Disease Active Overview: Abel nelson lump in lump in right Methodi female female st History of History of Disease Active mateus rectal rectal [facility]i cancer cancer st Wears Wears Disease Active [place] glasses glasses Methodi st Teeth Teeth Disease Active [place] missing missing Methodi st Immunizati Immunizati Disease Active [place] ons up to ons up to Meth carmen date date st Allergies, Adverse Reactions, Alerts Allergy Allergy Status Severity Reaction(s) Onset Inactive Treating Comm ents Source Name Type Date Date Clinician Methylpr Propensi Active GI [place] ty to Intolerance 1-24 Met hodi ne adverse 00:00: st reaction 00 s to drug Morphine Propensi Active Other (See Cardiac [place] ty to Comments) 10-26 event, Method[facility] adverse 00:00: needed st reaction 00 CPR. s to drug Sulfamet Drug Active Diarrhea, [facility] All[facility] Nausea And 3-19 Magnus es - -Trimeth Vomiting 00:00: Medica l oprim 00 Center Sulfamet Propensi Active Diarrhea, Alessandra ston hoxazole ty to Nausea And 3-19 Meth carmen -Trimeth adverse Vomiting 00:00: st oprim reaction 00 s to drug Sulfamet Drug Active 2013-[address] hoxazole Allergy -[facility] -[facility] 00:[facility]: Medical oprim 00 Center Family History Family Member Diagnosis Comments Start Date Stop Date Source Cousin Breast cancer [place] [facility] Cousin -Breast cancer MD Claribel nelson Natural father Cancer [place] [facility] Natural father -Unknown cancer MD Gabby luis Natural mother Arthritis [place] [facility] Paternal aunt Breast cancer [place] [facility] Natural sister Mental retardation [facility] Social History Social Habit Start Date Stop Date Quantity Comments Source Exposure to Not sure [place] SARS-CoV-2 [facility] (event) Sex Assigned At MD Anaya on Tobacco use and 2019-05-26 2019-05-26 Never used MD Anaya on exposure 00:00:00 00:00:00 Alcohol intake 2019-05-26 2019-05-26 Current non-drinker Minnie Mead 00:00:00 00:00:00 of alcohol (finding) Alcohol Comment 2015-09-29 2015-09-[address] [facility] Smoking Status Start Date Stop Date Source Never smoker MD Mead Medications Ordered Filled Start Stop Current Ordering Indication Dosage Frequency Signature Comments Components Source Medication Medication Date Date Medication? Clinician (SIG) Name Name clobetasol 2019-0 Yes 1{appli Apply 1 [place] (TEMOVATE) 8-13 cation} applicatio Methodi 0.05 % 15:30: n st ointment 22 topically as needed. diclofenac 2019-0 Yes Chronic Apply 4 [place] (VOLTAREN) 8-13 left hip grams to M ethodi 1 % gel 00:00: pain affected st 00 joint 4x/day amLODIPine 2019-0 Yes Essential 5mg QD Take 1 Saini (NORVASC) 5 4-01 hypertensio tablet (5 [facility] mg tablet 00:00: n mg total) st 00 by mouth daily. cholecalcif Yes Take 1 [place] jerardo, 4-01 tablet [facility] vitamin D3, 00:00: once per st 1,250 mcg 00 week (50,000 unit) tablet diclofenac 2019- No Lateral Apply 2 Saini (VOLTAREN) 08-14 08-13 epicondylit grams to [facility] 1 % gel 00:00: 00:00 is of right affected st 00 :00 elbow joint 4x/day indomethaci 2020- No 50mg [id number] Take 1 Saini n (INDOCIN) 08-14 0203 [id number] capsule [facility]i 50 MG 00:00: 23:59 3D ([address] capsule 00 :00 total) by mouth 3 (three) times a day with meals for 10 days. fluticasone 2018-07 Yes 1{puff} Inhale 1 MD -vilanterol 1-13 puff by Riley so (BREO 19:33: mouth n ELLIPTA) 41 daily. 200-25 mcg/dose clobetasol 2018-07 Yes 1{appli Apply 1 M D (TEMOVATE) 1-13 cation} applicatio Anderso 0.05% 19:33: n n ointment 41 topically to affected area(s) as needed. cholecalcif 2018-07 Yes 1{tbl} Take 1 MD jerardo, 0-13 tablet by Anderso vitamin D3, 00:00: mouth once n (VITAMIN 00 a week. D3) 50,000 units tab tablet cholecalcif 2018-07- No Take 1 Alessandra ston jerardo, 0-13 03-31 tablet [facility] vitamin D3, 00:00: 00:00 once per s t 50,000 unit 00 :00 week tablet cholecalcif 2018-07- No Take 1 Alessandra ston jerardo, 0-13 10-13 tablet [facility] vitamin D3, 00:00: 00:00 once per s t 50,000 unit 00 :00 week tablet amLODIPine 2018-07 Yes 5mg Take 5 mg MD (NORVASC) 5 0-10 by mouth Isaías rso mg tablet 00:00: daily. n 00 amLODIPine 2018-07- No Essential 5mg QD Take 1 [place] (NORVASC) 5 0-04 23- hypertensio tablet (5 Methodi mg tablet 00:00: 00:00 n mg total) st 00 :00 by mouth daily. cholecalcif 2018- No 2 times a [place] jerardo, 02-27- week [facility] vitamin D3, 00:00: 00:00 st 50,000 unit 00 :00 tablet olmesartan 2018- No Essential 20mg QD Take 1 [place] (BENICAR) 01-27 hypertensio tablet (20 Methodi 20 MG 00:00: 00:00 n mg total) st tablet 00 :00 by mouth daily. olmesartan 2018- No 1{tbl} Take 1 MD (BENICAR) 3- 11-13 tablet by Isaías rso 20 mg 00:00: 00:00 mouth n tablet 00 :00 daily. betamethaso Yes 1{appli Apply 1 MD ne 7-10 cation} applicatio Héctor o dipropionat 00:00: n n e 00 topically (DIPROLENE) to 0.05 % affected cream area(s) as needed. TiZANidine Yes TAKE 1 [place] (ZANAFLEX) 1-28 CAPSULE BY Met everett 2 MG 00:00: MOUTH AT st capsule 00 NIGHT FOR 90 DAY(S) HYDROcodone 2020- No 1{tbl} Q8H Take 1 [place] -acetaminop 9-11 08-13 tablet by Me lan rios (NORCO) 00:00: 00:[address] 10-325 mg 00 :00 every 8 per tablet (eight) hours as needed. gabapentin Yes 1{capsu Take 1 [place] (NEURONTIN) 6-27 le} capsule by thodi 300 mg 00:00: mouth. st capsule 00 gabapentin Yes 3{capsu Take 3 MD (NEURONTIN) 2-23 le} capsules Isaías rso 300 mg 00:00: by mouth 3 n capsule 00 (three) times a day. HYDROcodone Yes 2{tbl} Take 2 MD -acetaminop 1-24 tablets by An juan carlos rios ([employer]) 00:00: mouth as n 10 mg-325 00 needed. mg per Last took tablet norco Yesterday ibuprofen Yes 1{tbl} Take 1 MD (ADVIL,MOTR 9-26 tablet by And erso IN) 800 mg 00:00: mouth as n tablet 00 needed. tiZANidine Yes 1{capsu Take 1 MD (ZANAFLEX) 6-29 le} capsule by And erso 2 MG 00:00: mouth as n capsule 00 needed. fluticasone Yes 2{spray QD [address] (FLONASE) 3-19 } by Nasal [facility] - 50 16:33: route Medical mcg/actuati 18 daily. Center on nasal spray HYDROcodone Yes 1{tbl} Take [address] -acetaminop 3-19 tablet by Magnus rios (NORCO 16:33: mouth Medica l 5-325) 18 every 4 Center 5-325 mg (four) per tablet hours as needed for Pain. desonide Yes inflammatio .05{giovanny Q.5D Apply 0.[address] (DESOWEN) 3-19 n of the licatio applicatio [facility] - 0.05 % 16:33: skin due to n} n Medi tammy ointment 18 an allergy topically Center 2 (two) times daily. clobetasol Yes 60g Q.5D Apply [address] (TEMOVATE) 3-19 topically Luke s - 0.05 % 16:33: 2 (two) Medical ointment 18 times Center daily. Prn to scaly areas of body and legs Immunizations Ordered Immunization Filled Immunization Date Status Commen ts Source Name Name FLUBLJOHANNE QUAD PF 2019-04-30 Completed [place] 00:00:00 [facility] Pneumococcal 2016-08-14 Completed [place] Conjugate 13-Valent 00:00:00 Meth[place] dist Tdap 2016-08-14 Completed [place] 00:00:00 [facility] Vital Signs Vital Name Observation Time Observation Value Comments Source Systolic blood 2020-03-03 15:29:00 144 mm[Hg] Abel n [facility] pressure Diastolic blood 2020-03-03 15:29:00 83 mm[Hg] Teresita on [facility] pressure Heart rate 2020-03-03 15:29:00 74 /min [place] [facility] Respiratory rate 2020-03-03 15:29:00 16 /min Bogdan perales [facility] Body height 2020-03-03 15:29:00 166.4 cm Parveen Mallory Body weight 2020-03-03 15:29:00 88.451 kg Parveen Mallory BMI 2020-03-03 15:29:00 31.96 kg/m2 Parveen Mallory Oxygen saturation in 2020-03-03 15:29:00 100 /min Parveen Mallory Arterial blood by Pulse oximetry Body temperature 2019-08-14 08:18:00 36.61 Johana Bogdan perales [facility] Systolic blood 2019-06-03 19:30:00 136 mm[Hg] pressure Diastolic blood 2019-06-03 19:30:00 86 mm[Hg] MD Pierre derson pressure Heart rate 2019-06-03 19:30:00 72 /min MD Riley sheikh Body temperature 2019-06-03 19:30:00 36.72 Johana MD Neisha chung Respiratory rate 2019-06-03 19:30:00 16 /min MD Neisha chung Body weight 2019-06-03 19:30:00 86.4 kg MD Lin son BMI 2019-06-03 19:30:00 32.72 kg/m2 MD Lin kori Oxygen saturation in 2019-06-03 19:30:00 98 /min MD Mead Arterial blood by Pulse oximetry Procedures Procedure Date / Time Performing Clinician Source Performed MRI LUMBAR SPINE WO 2020-03-22 09:00:25 Saige Khoury on [facility] CONTRAST XR HIP 3-4 VIEWS BILATERAL 2020-03-03 16:21:42 Calderon Valverde Parveen Mallory Matos CARDIAC CATH REPORT - SCAN 2019-10-14 08:51:08 Provider, Default [facility] CARDIAC CATH REPORT - SCAN 2019-10-14 08:50:53 Provider, Default [facility] CT CHEST ABDOMEN PELVIS W 2019-05-26 16:57:55 Magy Soto MD CONTRAST CARCINOEMBRYONIC ANTIGEN 2019-05-26 15:16:00 Magy Soto MD COMPLETE BLOOD COUNT W/ 2019-05-26 15:16:00 Magy Soto MD DIFFERENTIAL COMPREHENSIVE METABOLIC 2019-05-26 15:16:00 Soto, Magy MD A nderson PANEL LACTATE DEHYDROGENASE 2019-05-26 15:16:00 Magy Soto MD And erson MAGNESIUM LEVEL 2019-05-26 15:16:00 Magy Soto MD PHOSPHORUS LEVEL 2019-05-26 15:16:00 Magy Soto MD Results CBC 2019-05-26 15:16:00 Magy Soto MD MANUAL DIFFERENTIAL 2019-05-26 15:16:00 Magy Soto MD [facility] GLUCOSE LEVEL 2019-05-26 15:16:00 Magy Soto MD BLOOD UREA NITROGEN 2019-05-26 15:16:00 Magy Soto MD [facility] ELECTROLYTE PANEL 2019-05-26 15:16:00 Magy Soto MD [facility] SERUM CREATININE 2019-05-26 15:16:00 Magy Soto MD .GLOMERULAR FILTRATION RATE 2019-05-26 15:16:00 Magy Soto MD CALCIUM LEVEL TOTAL 2019-05-26 15:16:00 Magy Soto MD [facility] ALBUMIN LEVEL 2019-05-26 15:16:00 Magy Soto MD ALKALINE PHOSPHATASE 2019-05-26 15:16:00 Magy Soto MD Isaías rson ALANINE AMINOTRANSFERASE 2019-05-26 15:16:00 Magy Soto MD ASPARTATE AMINOTRANSFERASE 2019-05-26 15:16:00 Magy Soto TOTAL PROTEIN 2019-05-26 15:16:00 Magy Soto MD FRACTIONATED BILIRUBIN 2019-05-26 15:16:00 Magy Soto MD derson BASIC METABOLIC PANEL 2019-04-30 12:23:00 Calderon Valverde VITAMIN D 25 HYDROXY LEVEL 2019-04-30 12:23:00 Calderon Valverde Plan of Care Planned Activity Planned Date Details Comments Source Future Scheduled 2020-07-08 Screening for S[facility]i [facility] Test 00:00:00 malignant neoplasm of cervix (procedure) [code = 060657267] Future Scheduled 2020-02-20 INFLUENZA VACCINE Abel Mallory Test 00:00:00 [code = INFLUENZA VACCINE] Encounters Start End Encounter Admission Attending Care Care Encounter Source Date/Time Date/Time Type Type Clinicians Facility Department ID 2020-03-22 2020-03-22 Outpatient KELSEY [facility] [id number] [place] 00:00:00 00:00:[address] VAIB[address] 2020-03-03 2020-03-03 Outpatient ABRAM [facility] [id number] [place] 00:00:00 00:00:00 CALDERON [address] 2020-03-03 2020-03-03 Outpatient ABRAM [facility] [id number] [place] 00:00:00 00:00:[address] Results Test Description Test Time Test Comments Results Result Sour e Comments CT Chest Abdomen 2019-05-28 Incidental findings MD Mead Pelvis with 15:11:48 and postsurgical Contrast changes as described above without evidence of local disease recurrence or metastasis within the thorax, abdomen and pelvis. Interface, Radiology Results In - 05/28/2019 9:13 AM CSTFULL RESULT:Examination: CT CHEST ABDOMEN PELVIS W CONTRAST, 05/26/2019 10:57 AMClinical History: Malignant neoplasm of rectum for restagingIndication : Restaging of rectal cancerComparison: CT chest, abdomen and pelvis dated 05/21/2018Technique : CT of the chest, abdomen, and pelvis was performed with intravenous contrast.Findings: CT thorax:Subsegmental atelectasis without lung mass or consolidation. No significant mediastinal, hilar or axillary lymphadenopathy. The heart and great vessels are normal. No pleural or pericardial effusion. The trachea and bilateral major airways are unremarkable. T5 vertebral body hemangioma again seen. Multilevel degenerative changes of the visualized axial skeleton.CT abdomen and pelvis:Remote postsurgical changes of low anterior resection without evidence of anastomotic recurrence. The stomach and small bowel are unremarkable. Incidental colonic diverticulosis. Significant stool within the colon. No ascites. No significant mesenteric, retroperitoneal or pelvic lymphadenopathy.A 1.5 cm right hepatic uniformly hypervascular lesion with a central hypodensity, may represent a focal nodular hyperplasia (series 6, image 159); this was faintly seen on CT study dated 11/19/2017. Stable right hepatic cystic lesion (image 163). The pancreas, both adrenals, gallbladder, spleen and bilateral kidneys are normal. Uterine leiomyomas again seen. Both ovaries are unremarkable. There is no adnexal mass. The urinary bladder is normal. Multilevel degenerative changes and diffuse osteopenia of the visualized axial skeleton.IMPRESSION :Incidental findings and postsurgical changes as described above without evidence of local disease recurrence or metastasis within the thorax, abdomen and pelvis. Vitamin D 25 hydroxy level 2019-05-01 09:10:00 Test Item Value Reference Range Interpretation Comme nts Vitamin D, 25-hydroxy 63.6 ng/mL 30-100 Vitami n D deficiency has been (test code = 80805-9) define d by the [place] ofMedicine and an Endocrine Society practic e guideline as alevel of serum 25-OH vitamin D less than 20 ng/mL (1,2).The Endoc rine Society went on to furt her define vitamin Dinsuff iciency as a level between 2 1 and 29 ng/mL (2).1. IOM (Ins titute of Medicine). 2010 . Dietary reference int akes for calcium and D. [place]: The National Academies Press.2. Angela MF, Marty NC, Can cottrell PERRY, et al. Evaluatio n, treatment, and prevention of vitamin D deficiency: an Endocrine Society clinica l practice guideline. JCEM . 2010; 96(7):1911-30. KAMRYN (test code = KAMRYN) Performed at: [facility] [id number] Director: Julio Cesar Chen MD, Phone: [phone] [place] [facility] [id number] 06:09:00 Test Item Value Reference Range Interpretation Comments Glucose (test code = 83 mg/dL 65-99 2345-7) BUN (test code = 11 mg/dL 6-24 3094-0) Creatinine (test code = 0.77 mg/dL 0.57-1 2160-0) EGFR Non-Afr. Citizen Of [place] 92 mL/min/1.73 >59 (test code = 2775) EGFR 106 mL/min/1.73 >59 (test code = 2774) BUN/creatinine ratio 14 9-23 (test code = 3097-3) Sodium (test code = 144 mmol/L 510-410 3559-2) Potassium (test code = 3.8 mmol/L 3.5-5.2 2823-3) Chloride (test code = 101 mmol/L 96-106 0) CO2 (test code = 23 mmol/L 2028-03) Calcium (test code = 9.7 mg/dL 8.7-10.2 ) KAMRYN (test code = KAMRYN) Performed at: 01 - [facility] [id number] [place], [place] [id number] Director: Julio Cesar Chen MD, Phone: [phone] [facility]
[2020-04-16] MEDS ORDERED: KETOROLAC 30 MG/ML INJ ONE (10:04)
[2020-04-16] MEDS ORDERED: dexAMETHasone 4 MG/ML VIAL ONE (10:05)
--- NOTE | 2020-04-16 11:53 | ER ---
Nurse's Notes [facility] Name: Trisha Ashton Age: 49 yrs Sex: Female : 1970 Arrival Date: 04/16/2020 Time: :27 Bed 5 Private MD: Diagnosis: Acute pharyngitis Presentation: 04/16 09:36 Chief complaint: Sore throat c 3 days. Coronavirus screen: At this time, the client hb does not indicate any symptoms associated with coronavirus-19. Ebola Screen: No symptoms or risks identified at this time. Initial Sepsis Screen: Does the patient meet any 2 criteria? No. Patient's initial sepsis screen is negative. Does the patient have a suspected source of infection? No. Patient's initial sepsis screen is negative. Risk Assessment: Do you want to hurt yourself or someone else? Patient reports no desire to harm self or others. Onset of symptoms was April 13, 2020. 09:36 Method Of Arrival: Ambulatory hb 09:36 Acuity: GARRETT 4 hb Triage Assessment: 09:38 General: Appears in no apparent distress. Behavior is calm, cooperative. Pain: Pain hb currently is 9 out of 10 on a pain scale. EENT: Reports pain since right mouth and sore throat. Neuro: Level of Consciousness is awake, alert, obeys commands, Oriented to person, place, time, situation. Cardiovascular: Capillary refill < 3 seconds Patient's skin is warm and dry. Respiratory: Respiratory effort is even, unlabored, Respiratory pattern is regular, symmetrical. GI: No signs and/or symptoms were reported involving the gastrointestinal system. : No signs and/or symptoms were reported regarding the genitourinary system. Derm: Skin is pink, warm \T\ dry. Musculoskeletal: No signs and/or symptoms reported regarding the musculoskeletal system. 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 - Social history:: Smoking status: Patient denies any tobacco usage or history of. Screenin:39 Abuse screen: Denies threats or abuse. Denies injuries from another. Nutritional hb screening: No deficits noted. Tuberculosis screening: No symptoms or risk factors identified. Fall Risk None identified. Assessment: 09:39 General: see triage assessment. hb 10:45 Reassessment: Patient appears in no apparent distress at this time. Patient and/or hb family updated on plan of care and expected duration. Pain level reassessed. Patient is alert, oriented x 3, equal unlabored respirations, skin warm/dry/pink. 11:35 Reassessment: Patient appears in no apparent distress at this time. Patient and/or hb family updated on plan of care and expected duration. Pain level reassessed. Patient is alert, oriented x 3, equal unlabored respirations, skin warm/dry/pink. Vital Signs: 09:36 BP 151 / 100; Pulse 69; Resp 16; Temp 98.9(TE); Pulse Ox 100% on R/A; Pain 9/10; hb 10:45 BP 138 / 93; Pulse 88; Resp 16; Pulse Ox 99% on R/A; hb 11:45 BP 144 / 64; Pulse 66; Resp 15; Pulse Ox 99% on R/A; hb ED Course: 09:27 Patient arrived in ED. mr 09:32 Ruslan Castro, NERIS is PHCP. pm1 09:32 Levi Mcdonald MD is Attending Physician. pm1 09:36 Virginia Antony RN is Primary Nurse. hb 09:37 Triage completed. hb 09:38 Arm band placed on. hb 09:39 Patient has correct armband on for positive identification. Bed in low position. Call hb light in reach. 10:03 Flu and/or RSV swab sent to lab. Strep swab sent to lab. hb 12:03 No provider procedures requiring assistance completed. Patient did not have IV access hb during this emergency room visit. Administered Medications: 10:02 Drug: Decadron 10 mg Route: IM; Site: left deltoid; hb 10:35 Follow up: Response: No adverse reaction hb 10:03 Drug: TORadol 60 mg Route: IM; Site: right deltoid; hb 10:35 Follow up: Response: No adverse reaction hb Outcome: 11:53 Discharge ordered by MD. pm1 12:03 Discharged to home ambulatory. hb 12:03 Condition: stable 12:03 Discharge instructions given to patient, Instructed on discharge instructions, follow up and referral plans. Demonstrated understanding of instructions, follow-up care, medications. 12:05 Patient left the ED. hb Signatures: Joaquina Soriano mr CastroRuslan, BLANKER OPERATOR BLANKER OPERATOR pm1 Virginia Antony, RN RN hb
--- NOTE | 2020-04-16 11:54 | EDPHYS ---
Physician Documentation [facility] Name: Trisha Ashton Age: 49 yrs Sex: Female : 1970 Arrival Date: 04/16/2020 Time: 09:27 Bed 5 Private MD: ED Physician Levi Mcdonald HPI: 04/16 10:03 This 49 yrs old Black Female presents to ER via Ambulatory with complaints of sore pm1 throat. 10:03 The patient presents with sore throat. The patient describes throat pain as constant, pm1 raw, scratchy. Onset: The symptoms/episode began/occurred 3 day(s) ago. Severity of symptoms: in the emergency department the symptoms are actually worse. Modifying factors: the symptoms are aggravated by fluids, foods, swallowing. Associated signs and symptoms: Pertinent negatives cough, earache, fever, vomiting. The patient has not recently seen a physician. 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 - Social history:: Smoking status: Patient denies any tobacco usage or history of. ROS: 10:03 Constitutional: Negative for fever, chills, and weight loss. pm1 10:03 Neck: Negative for injury, pain, and swelling, Cardiovascular: Negative for chest pain, palpitations, and edema, Respiratory: Negative for shortness of breath, cough, wheezing, and pleuritic chest pain, Abdomen/GI: Negative for abdominal pain, nausea, vomiting, diarrhea, and constipation, Back: Negative for injury and pain, MS/Extremity: Negative for injury and deformity, Skin: Negative for injury, rash, and discoloration, Neuro: Negative for headache, weakness, numbness, tingling, and seizure. 10:03 ENT: Positive for sore throat, Negative for drainage from ear(s), ear pain, difficulty swallowing, difficulty handling secretions, hoarseness. Exam: 10:03 Constitutional: This is a well developed, well nourished patient who is awake, alert, pm1 and in no acute distress. Head/Face: Normocephalic, atraumatic. Eyes: Pupils equal round and reactive to light, extra-ocular motions intact. Lids and lashes normal. Conjunctiva and sclera are non-icteric and not injected. Cornea within normal limits. Periorbital areas with no swelling, redness, or edema. ENT: Nares patent. No nasal discharge, no septal abnormalities noted. Tympanic membranes are normal and external auditory canals are clear. Oropharynx with no redness, swelling, or masses, exudates, or evidence of obstruction, uvula midline. Mucous membranes moist. 10:03 Back: No spinal tenderness. No costovertebral tenderness. Full range of motion. Skin: Warm, dry with normal turgor. Normal color with no rashes, no lesions, and no evidence of cellulitis. MS/ Extremity: Pulses equal, no cyanosis. Neurovascular intact. Full, normal range of motion. 10:03 Neck: ROM/movement: is normal, Lymph nodes: lymphadenopathy is appreciated, anterior cervical nodes. 10:03 Cardiovascular: Exam negative for acute changes, Rate: normal, Rhythm: regular, Pulses: no pulse deficits are appreciated. 10:03 Respiratory: Exam negative for acute changes, respiratory distress, shortness of breath. 10:03 Neuro: Exam negative for acute changes, Orientation: is normal, Mentation: is normal, Motor: is normal, moves all fours. Vital Signs: 09:36 BP 151 / 100; Pulse 69; Resp 16; Temp 98.9(TE); Pulse Ox 100% on R/A; Pain 9/10; hb 10:45 BP 138 / 93; Pulse 88; Resp 16; Pulse Ox 99% on R/A; hb 11:45 BP 144 / 64; Pulse 66; Resp 15; Pulse Ox 99% on R/A; hb MDM: 09:33 Patient medically screened. pm1 11:52 Data reviewed: vital signs. Data interpreted: Pulse oximetry: on room air is 99 %. pm1 Interpretation: normal. Counseling: I had a detailed discussion with the patient and/or guardian regarding: the historical points, exam findings, and any diagnostic results supporting the discharge/admit diagnosis, lab results, the need for outpatient follow up, to return to the emergency department if symptoms worsen or persist or if there are any questions or concerns that arise at home. 11:52 ED course: Patient's right anterior lymphadenopathy improved with steroid given and pm1 patient's pain improved. Patient's airway intact. No trismus present. Given improvement and lab results. Patient's pharyngitis likely viral. Patient understood no antibiotics are necessary. 04/16 09:46 Order name: Strep; Complete Time: 11:02 pm1 04/16 09:46 Order name: Flu; Complete Time: 11:40 pm1 04/16 10:57 Order name: Throat Culture EDMS Administered Medications: 10:02 Drug: Decadron 10 mg Route: IM; Site: left deltoid; hb 10:35 Follow up: Response: No adverse reaction hb 10:03 Drug: TORadol 60 mg Route: IM; Site: right deltoid; hb 10:35 Follow up: Response: No adverse reaction hb Disposition: 04/17 08:41 Co-signature as Attending Physician, Levi Mcdonald MD I agree with the assessment and kdr plan of care. Disposition: 04/16/20 11:53 Discharged to Home. Impression: Acute pharyngitis. - Condition is Stable. - Discharge Instructions: Pharyngitis. - Medication Reconciliation Form, Thank You Letter, Antibiotic Education, Prescription Opioid Use form. - Follow up: Emergency Department; When: As needed; Reason: Worsening of condition. Follow up: Private Physician; When: 2 - 3 days; Reason: Recheck today's complaints, Continuance of care, Re-evaluation by your physician. - Problem is new. - Symptoms have improved. Signatures: Dispatcher [employer] EDOH Levi Mcdonald MD MD kdr Marinas, Patrick, [employer] pm1 Virginia Antony, RN RN hb Corrections: (The following items were deleted from the chart) 04/16 12:05 11:53 04/16/2020 11:53 Discharged to Home. Impression: Acute pharyngitis. Condition is hb Stable. Forms are Medication Reconciliation Form, Thank You Letter, Antibiotic Education, Prescription Opioid Use. Follow up: Emergency Department; When: As needed; Reason: Worsening of condition. Follow up: Private Physician; When: 2 - 3 days; Reason: Recheck today's complaints, Continuance of care, Re-evaluation by your physician. Problem is new. Symptoms have improved. pm1
[2020-04-16 12:34] VITALS: TEMP 98.9
[2020-04-16 12:35] VITALS: O2SAT 99
[2020-04-16 12:37] VITALS: BP 144/64
== END 2020-04-16 12:05 | disposition home or self-care (01) ==
LOC: ER 09:21
DX: J02.9 Acute pharyngitis, unspecified (principal); Z85.038 Personal history of other malignant neoplasm of large intestine; Z88.1 Allergy status to other antibiotic agents; Z88.5 Allergy status to narcotic agent
CPT/HCPCS: 87070; 87081; 87804; 96372; 99283

== ENCOUNTER 2021-06-10 16:45 | Emergency (ER) | payer BC ==
--- OUTSIDE RECORDS SUMMARY | 2021-06-10 16:48 | XMS REPORT | Clinical Summary ---
:1970 Author Organization [facility] MD Lin [facility] Address [address] [place] [address] Care Team Providers Name Role Phone Neisha Keynon MD Unavailable MD Ja Primary Care Provider Allergies Active Allergy Reactions Severity Noted Date Comments Morphine High 10/26/2016 Other reaction( s): Other (See Comm ents) Cardiac event, needed CPR. Other reaction( s): Other - See com ments "Flat line" Hydrocodone-Acetamino High 11/20/2017 "Foggy Vision " , phen like moving in slow motion Other Diarrhea, Nausea And High 07/21/2014 Na Vomiting Benzoate-sulfam ethoxaz ole-trimethopri m Causes Diar michael, Nausea and Vomi ting (Nausea And Vom iting) streoids : Severe abdominal cramp ing Sulfa (Sulfonamide Nausea And Vomiting 09/22/2017 Antibiotics) Sulfamethoxazole-Trim Diarrhea, Nausea And Medium 10/07/2014 ethoprim Vomiting Medications Medication Sig Dispensed Refills Start Date End Date Status gabapentin Take 3 capsules by 0 09/13/2016 Active (NEURONTIN) 300 mg mouth 3 (three) capsule times a day. HYDROcodone-acetamino Take 2 tablets by 0 08/14/2016 Active phen (NORCO) 10 mouth as needed. mg-325 mg per tablet Last took norco Yesterday tiZANidine (ZANAFLEX) Take 1 capsule by 0 01/18/2016 Active 2 MG capsule mouth as needed. ibuprofen Take 1 tablet by 0 04/16/2016 Ac tive (ADVIL,MOTRIN) 800 mg mouth as needed. tablet fluticasone-vilantero Inhale 1 puff by 0 Active l (BREO ELLIPTA) mouth daily. 200-25 mcg/dose clobetasol (TEMOVATE) Apply 1 application 0 Active 0.05% ointment topically to affected area(s) as needed. betamethasone Apply 1 application 0 01/28/2018 Active dipropionate topically to (DIPROLENE) 0.05 % affected area(s) as cream needed. amLODIPine (NORVASC) Take 5 mg by mouth 0 04/30/2019 Active 5 mg tablet daily. cholecalciferol, Take 1 tablet by 0 05/03/2019 Active vitamin D3, (VITAMIN mouth once a week. D3) 50,000 units tab tablet Active Problems Problem Noted Date Rectal cancer 10/08/2016 Cancer Staging: Pathologic stage from : Stage IIIA (pT2, pN1a, cM0) - Signed by Gary Peres MD on 10/29/2017 Encounters Date Type Specialty Care Team Description 10/04/2020 Orders Only Infectious Diseases Anshu Santiago MD S ARS-CoV-2 vaccination after 06/10/2020 Surgical History Surgery Date Site/Laterality Comments COLON SURGERY COLONOSCOPY ANKLE FRACTURE SURGERY 07/22/1999 - 07/21/2000 Right TONSILLECTOMY Medical History Medical History Date Comments Neuropathy secondary chemothera py Tooth disorder Chronic bronchitis Sexual dysfunction Menopause Anemia Fracture wrist- right Depressive disorder Anxiety Eczema Rectal cancer Arthritis Cardiac murmur Family History Medical History Relation Name Comments -Breast cancer Cousin -Unknown cancer Father Relation Name Status Comments Cousin Father Social History Tobacco Use Types Packs/Day Years Used Date Never Smoker Smokeless Tobacco: Never Used Alcohol Use Standard Drinks/Week Comments No 0 (1 standard drink = 0.6 oz pure alcoho l) Sex Assigned at Date Recorded Female 06/06/2020 12:57 PM [employer]NA[employer] Job Start Date Occupation Industry Not on file Not on file Not on file Obstetrics History Last Filed Vital Signs Not on file Plan of Treatment Health Maintenance Due Date Last Done Comments COVID-19 Vaccination (1) 1982 Results Not on fileafter 06/10/2020 Insurance Payer Benefit Plan / Subscriber ID Effective Dates Phone Addre ss Type Group [place] [id number] 2017-Present [id number] O BLUE [employer] BLUE[facility] [id number] Care Teams Can Patcher Relationship Specialty Start Date End Date Dimple Kenyon PCP - External Family Practice 08/29/16 MD Neisha Referring [facility] [place] [address] Gary Peres MD PCP - General Gastrointestinal Medical 10/08/[address] [place] [address] [place] [address]
--- OUTSIDE RECORDS SUMMARY | 2021-06-10 16:50 | XMS REPORT | Continuity of Care Document ---
:1970 Author Organization [facility] t Address [address] [place] [address] Care Team Providers Name Role Phone JAYMIE Primary Care Physician Unavailable JOSE Attending Clinician Unavailable Neisha KULKARNI Attending Clinician Unavailable ROLAND SCRUGGS Attending Clinician Unavailable Nurse, Pob Immunization Attending Clinician Unavailable Roland Scruggs DO Attending Clinician Neisha Kulkarni MD Attending Clinician Doctor Unassigned, Name Attending Clinician Unavailable BONNIE Attending Clinician Unavailable Sumi THOMAS L Attending Clinician Rolando SON Attending Clinician Unavailable Jack THOMAS Attending Clinician Minnie WILSON Attending Clinician Unavailable JAYMIE Attending Clinician Unavailable ALESSANDRA Attending Clinician Unavailable KELSEY Attending Clinician Unavailable MIRYAM Attending Clinician Unavailable Payers Payer Name Policy Type Policy Number Effective Date Expiration Date Avtar fleming [facility] [id number] 2017 SELECT 00:00:00 [facility] 2 [id number] 2021 00:00:00 BLUE CROSS BLUE [id number] 2017 MD Isaías cortes [facility] 00:00:00 BLUE/BLUE [id number] [id number] 2016-Pre [id number] [id number] Problems Condition Condition Condition Status Onset Resolution Last Treating Co mments Source Name Details Category Date Date Treatment Clinician Date Obesity Obesity Disease Active Univers (BMI (BMI 9-03 ity of 30-39.9) 30-39.9) 00:00: [place] [facility] Hyperchole Hyperchole Disease Active U nivers sterolemia sterolemia 03-22 it y of 00:00: [place] [facility] Prediabete Prediabete Disease Active U aryers s s 03-22 ity of 00:00: [place] [facility] History of History of Disease Active U nivers rectal rectal 8-27 ity of cancer cancer 00:00: [place] [facility] Arthritis Arthritis Disease Active Uni vers of left of left 8 ity of foot foot 00:00: [place] [facility] Chronic Chronic Disease Active 2016-07 Univers neck and neck and 1-03 ity of back pain [place] pain [place] Rotator Rotator Disease Active Univers cuff cuff 9 ity of tendinitis [place]initis [place] Trochanter Trochanter Disease Active U aryers ic ic 9- ity of bursitis bursitis 00:00: [place] of left of left 00 Medical hip hip Branch Rectal Rectal Disease Active cancer cancer 3-20 Anderso 00:00: n 00 Anemia Anemia Disease Active Univers 1-15 ity of 00:00: [place] 00 Medical Branch Allergies, Adverse Reactions, Alerts Allergy Allergy Status Severity Reaction(s) Onset Inactive Treating Comm ents Source Name Type Date Date Clinician Sulfa Propensi Active Nausea Univers (Sulfona ty to and/or 3-04 ity of mide adverse Vomiting 00:00: [place] Antibiot reaction 00 Medica l ics) s Branch SULFA Drug Active N/V Univers (SULFONA Class 3-04 ity of MIDE 00:00: [place] ANTIBIOT 00 Medical ICS) Branch Morphine Propensi Active Other - See 2016-07 "Flat U nivers ty to comments 0-14 line" ity of adverse 00:00: [place] reaction 00 Medical s Branch MORPHINE DRUG Active Other-Cmnt 2016-07 Univ ers INGREDI 0-14 ity of 00:00: [place] 00 Medical Branch SULFAMET Allergy Active [facility] Family History Family Member Diagnosis Comments Start Date Stop Date Source Cousin -Breast cancer MD Claribel nelson Natural father -Unknown cancer MD Gabby luis Social History Social Habit Start Date Stop Date Quantity Comments Source History SDOH University o f Alcohol Frequency [place] M [facility] History SDOH University o f Alcohol Std [place] [facility] Drinks [facility] History SDOH University o f Alcohol Binge [place] [facility] Exposure to Not sure [facility] SARS-CoV-2 [facility] (event) Branch Alcohol Comment 2021-03-17 2021-03-17 occasional wine Univ ersity of 00:00:00 00:00:[address] [facility] Alcohol intake 2020-06-07 2020-06-07 Current MD Claribel nelson 00:00:00 00:00:00 non-drinker of alcohol (finding) Tobacco use and 2016-10-08 2016-10-08 Smokeless tobacco MD Mead exposure 00:00:00 00:00:00 non-user Sex Ass[birth year] At [birth year] Universit y of 00:00:00 00:00:[address] [facility] Smoking Status Start Date Stop Date Source Never smoker [facility] Medications Ordered Filled Start Stop Current Ordering Indication Dosage Frequency Signature Comments Components Source Medication Medication Date Date Medication? Clinician (SIG) Name Name rosuvastati Yes [id number] 5mg Take 1 Univers n 5 mg 9-01 tablet by ity of tablet 00:00: mouth at [place] [address] bedtime. Medical Branch rosuvastati Yes [id number] 5mg Take 1 Univers n 5 mg 9-01 tablet by ity of tablet 00:00: mouth at [place] [address] bedtime. Medical Branch rosuvastati Yes [id number] 5mg Take 1 Univers n 5 mg 9-01 tablet by ity of tablet 00:00: mouth at [place] [address] bedtime. Medical Branch rosuvastati Yes [id number] 5mg Take 1 Univers n 5 mg 9-01 tablet by ity of tablet 00:00: mouth at [place] [address] bedtime. Medical Branch rosuvastati Yes [id number] 5mg Take 1 Univers n 5 mg 9-01 tablet by ity of tablet 00:00: mouth at [place] 00 bedtime. Medical Branch rosuvastati Yes [id number] 5mg Take 1 Univers n 5 mg 9-01 tablet by ity of tablet 00:00: mouth at [place] 00 bedtime. Medical Branch rosuvastati Yes [id number] 5mg Take 1 Univers n 5 mg 9-01 tablet by ity of tablet 00:00: mouth at [place] [address] bedtime. Medical Branch rosuvastati Yes [id number] 5mg Take 1 Univers n 5 mg 9-01 tablet by ity of tablet 00:00: mouth at [place] [address] bedtime. Medical Branch rosuvastati Yes [id number] 5mg Take 1 Univers n 5 mg 9-01 tablet by ity of tablet 00:00: mouth at [place] [address] bedtime. Medical Branch VALSARTAN 2020- No Take by Uni vers ORAL 03-17 mouth. ity of 18:45: 00:00 [place] 56 :00 Medical Branch TIZANIDINE 2020- No Take by Un senia HCL 03-17 mouth. ity of (TIZANIDINE 18:45: 00:00 [place] ORAL) 53 :00 Medical Branch fluticasone 2019-07 Yes 1{puff} Inhale 1 MD -vilanterol 1-16 puff by Riley so (BREO 12:43: mouth n ELLIPTA) 20 daily. 200-25 mcg/dose clobetasol 2019-07 Yes 1{appli Apply 1 M D (TEMOVATE) 1-16 cation} applicatio Anderso 0.05% 12:43: n n ointment 20 topically to affected area(s) as needed. cholecalcif 2018-07 Yes 1{tbl} Take 1 MD jerardo, 0-13 tablet by Anderso vitamin D3, 00:00: mouth once n (VITAMIN 00 a week. D3) 50,000 units tab tablet amLODIPine 2018-07 Yes 5mg Take 5 mg MD (NORVASC) 5 0-10 by mouth Isaías rso mg tablet 00:00: daily. n 00 betamethaso Yes 1{appli Apply 1 MD ne 7-10 cation} applicatio Héctor o dipropionat 00:00: n n e 00 topically (DIPROLENE) to 0.05 % affected cream area(s) as needed. VALSARTAN Yes Take by Univ ers ORAL 3-09 mouth. ity of 15:27: [place] 31 Medical Branch TIZANIDINE Yes Take by Uni vers HCL 3-09 mouth. ity of (TIZANIDINE 15:27: [place] ORAL) 31 Medical Branch naproxen Yes 550mg Take 1 Univer s sodium 3-04 tablet by ity of (ANAPROX 00:00: mouth 2 [place] DS) 550 mg 00 (two) Medical tablet times Branch daily with meals. naproxen 2020- No 550mg Take 1 Unive rs sodium 3-04 08-27 tablet by ity of (ANAPROX 00:00: 00:00 mouth 2 [place] DS) 550 mg 00 :00 (two) Medical tablet times Branch daily with meals. gabapentin Yes 3{capsu Take 3 MD (NEURONTIN) 2-23 le} capsules Isaías rso 300 mg 00:00: by mouth 3 n capsule 00 (three) times a day. HYDROcodone Yes 2{tbl} Take 2 Un senia -acetaminop 1-24 tablets by it y of hen 10-325 00:00: mouth. [place] mg tablet 00 Medical Branch HYDROcodone Yes 2{tbl} Take 2 MD -acetaminop 1-24 tablets by An derso hen (NORCO) 00:00: mouth as n 10 mg-325 00 needed. mg per Last took tablet norco Yesterday HYDROcodone 2020- No 2{tbl} Take 2 U nivers -acetaminop 1-24 08-27 tablets by i ty of hen 10-325 00:00: 00:00 [place] mg tablet 00 :00 Medical Branch gabapentin 2015-07 Yes TAKE ONE Uni vers 300 mg 2-12 CAPSULE BY ity of capsule 00:00: MOUTH 3 [place] 00 TIMES A Medical DAY Branch gabapentin 2015-07- No TAKE ONE Un senia 300 mg 2-12 08-27 CAPSULE BY ity of capsule 00:00: 00:00 MOUTH 3 [place] 00 :00 TIMES A Medical DAY Branch ibuprofen 2016-0 Yes 1{tbl} Take 1 MD (ADVIL,MOTR 9-26 tablet by And erso [place]) 800 mg 00:00: mouth as n tablet 00 needed. tiZANidine 2015-0 Yes 1{capsu Take 1 MD (ZANAFLEX) 6-29 le} capsule by And erso 2 MG 00:00: mouth as n capsule 00 needed. Immunizations Ordered Filled Immunization Date Status Comments [facility] e Immunization Name Name SARS-COV-2 COVID-19 2021-06-09 Completed Unive rsity of MODERNA BOOSTER 00:00:00 [facility] ical VACCINE Branch SARS-COV-2 COVID-19 2020-09-21 Completed Unive rsity of MODERNA VACCINE 00:00:00 [facility] ical Branch SARS-COV-2 COVID-19 2020-09-21 Completed Unive rsity of MODERNA VACCINE 00:00:00 [facility] ical Branch SARS-COV-2 COVID-19 2020-09-21 Completed Unive rsity of MODERNA VACCINE 00:00:00 [facility] ical Branch SARS-COV-2 COVID-19 2020-09-21 Completed Unive rsity of MODERNA VACCINE 00:00:00 [facility] ical Branch SARS-COV-2 COVID-19 2020-09-21 Completed Unive rsity of MODERNA VACCINE 00:00:00 [facility] ical Branch SARS-COV-2 COVID-19 2020-09-21 Completed Unive rsity of MODERNA VACCINE 00:00:00 [facility] ical Branch SARS-COV-2 COVID-19 2020-09-21 Completed Unive rsity of MODERNA VACCINE 00:00:00 [facility] ical Branch SARS-COV-2 COVID-19 2020-09-21 Completed Unive rsity of MODERNA VACCINE 00:00:00 [facility] ical Branch SARS-COV-2 COVID-19 2020-09-21 Completed Unive rsity of MODERNA VACCINE 00:00:00 [facility] ical Branch SARS-COV-2 COVID-19 2020-09-21 Completed Unive rsity of MODERNA VACCINE 00:00:00 [facility] ical Branch SARS-COV-2 COVID-19 2020-09-21 Completed Unive rsity of MODERNA VACCINE 00:00:00 [facility] Branch SARS-COV-2 COVID-19 2020-08-23 Completed Unive rsity of MODERNA VACCINE 00:00:00 [facility] Branch SARS-COV-2 COVID-19 2020-08-23 Completed Unive rsity of MODERNA VACCINE 00:00:00 [facility] SARS-COV-2 COVID-19 2020-08-23 Completed Unive rsity of MODERNA VACCINE 00:00:00 [facility] Branch SARS-COV-2 COVID-19 2020-08-23 Completed Unive rsity of MODERNA VACCINE 00:00:00 [facility] Branch SARS-COV-2 COVID-19 2020-08-23 Completed Unive rsity of MODERNA VACCINE 00:00:00 [facility] SARS-COV-2 COVID-19 2020-08-23 Completed Unive rsity of MODERNA VACCINE 00:00:00 [facility] SARS-COV-2 COVID-19 2020-08-23 Completed Unive rsity of MODERNA VACCINE 00:00:00 [facility] SARS-COV-2 COVID-19 2020-08-23 Completed Unive rsity of MODERNA VACCINE 00:00:00 [facility] SARS-COV-2 COVID-19 2020-08-23 Completed Unive rsity of MODERNA VACCINE 00:00:00 [facility] SARS-COV-2 COVID-19 2020-08-23 Completed Unive rsity of MODERNA VACCINE 00:00:00 [facility] SARS-COV-2 COVID-19 2020-08-23 Completed Unive rsity of MODERNA VACCINE 00:00:00 [facility] Influenza Virus 2019-04-30 Completed Universit y of Vaccine 00:00:[address] [facility] Influenza Virus 2019-04-30 Completed Universit y of Vaccine 00:00:[address] [facility] Influenza Virus 2019-04-30 Completed Universit y of Vaccine 00:00:[address] [facility] Influenza Virus 2019-04-30 Completed Universit y of Vaccine 00:00:[address] [facility] Influenza Virus 2019-04-30 Completed Universit y of Vaccine 00:00:[address] [facility] Influenza Virus 2019-04-30 Completed Universit y of Vaccine 00:00:[address] [facility] Influenza Virus 2019-04-30 Completed Universit y of Vaccine 00:00:[address] [facility] Influenza Virus 2019-04-30 Completed Universit y of Vaccine 00:00:[address] [facility] Influenza Virus 2019-04-30 Completed Universit y of Vaccine 00:00:[address] [facility] Influenza Virus 2019-04-30 Completed Universit y of Vaccine 00:00:[address] [facility] Pneumococcal 13 2016-08-14 Completed Universit y of Conjugate, PCV13 00:00:00 [facility] dical (Prevnar 13) Branch [facility] 2016-08-14 Completed University of 00:00:[address] [facility] Pneumococcal 13 2016-08-14 Completed Universit y of Conjugate, PCV13 00:00:00 [facility] dical (Prevnar 13) Branch [facility] 2016-08-14 Completed University of 00:00:[address] [facility] Pneumococcal 13 2016-08-14 Completed Universit y of Conjugate, PCV13 00:00:00 [facility] dical (Prevnar 13) Branch [facility] 2016-08-14 Completed University of 00:00:[address] [facility] Pneumococcal 13 2016-08-14 Completed Universit y of Conjugate, PCV13 00:00:00 [facility] dical (Prevnar 13) Branch [facility] 2016-08-14 Completed University of 00:00:[address] [facility] Pneumococcal 13 2016-08-14 Completed Universit y of Conjugate, PCV13 00:00:00 [facility] dical (Prevnar 13) Branch [facility] 2016-08-14 Completed University of 00:00:[address] [facility] Pneumococcal 13 2016-08-14 Completed Universit y of Conjugate, PCV13 00:00:00 [facility] dical (Prevnar 13) Branch [facility] 2016-08-14 Completed University of 00:00:[address] [facility] Pneumococcal 13 2016-08-14 Completed Universit y of Conjugate, PCV13 00:00:00 [facility] dical (Prevnar 13) Branch [facility] 2016-08-14 Completed University of 00:00:[address] [facility] Pneumococcal 13 2016-08-14 Completed Universit y of Conjugate, PCV13 00:00:00 [facility] dical (Prevnar 13) Branch [facility] 2016-08-14 Completed University of 00:00:[address] [facility] Pneumococcal 13 2016-08-14 Completed Universit y of Conjugate, PCV13 00:00:00 [facility] dical (Prevnar 13) Branch TDAP 2016-08-14 Completed University of 00:00:[address] [facility] Pneumococcal 13 2016-08-14 Completed Universit y of Conjugate, PCV13 00:00:00 [facility] dical (Prevnar 13) Branch TDAP 2016-08-14 Completed University 00:00:[address] [facility] Vital Signs Vital Name Observation Time Observation Value Comments Source Systolic blood 2021-03-24 19:28:00 139 mm[Hg] Univer sity of [facility] Diastolic blood 2021-03-24 19:28:00 87 mm[Hg] Unive rsity of [facility] Heart rate 2021-03-24 19:28:00 73 /min Universi ty [facility] Respiratory rate 2021-03-24 19:28:00 20 /min Univ ersity [facility] Body height 2021-03-24 19:28:00 165.1 cm Universi ty [facility] Body weight 2021-03-24 19:28:00 91.536 kg Universi ty [facility] BMI 2021-03-24 19:28:00 33.58 kg/m2 [facility] Oxygen saturation in 2021-03-24 19:28:00 98 /min [facility] Arterial blood by [facility] Pulse oximetry Branch Systolic blood 2021-03-17 18:39:00 134 mm[Hg] Univer sity of [facility] Diastolic blood 2021-03-17 18:39:00 72 mm[Hg] Unive rsity of [facility] Heart rate 2021-03-17 18:39:00 57 /min Universi ty [facility] Body height 2021-03-17 18:39:00 166.4 cm Universi ty [facility] Body weight 2021-03-17 18:39:00 92.08 [address] [facility] BMI 2021-03-17 18:39:00 33.27 kg/m2 [facility] Procedures Procedure Date / Time Performed Performing Clinician Sour e SARS-COV-2 COVID-19 2021-06-09 19:46:47 Doctor Unassigned, No Un iversity of [place] VACCINE [facility] BOOSTER,0.25ML,IM (MODERNA) ASSIGNMENT OF BENEFITS 2021-04-03 19:25:16 Doctor Unassigned, No [facility] PATIENT FINANCIAL 2021-03-17 17:48:27 Doctor Unassigned, No [facility] Plan of Care Planned Activity Planned Date Details Comments Source Future Scheduled Test 1982 00:00:00 COVID-19 Vaccination MD [place] (1) [code = COVID-19 Vaccination (1)] Encounters Start End Encounter Admission Attending Care Care Encounter Source Date/Time Date/Time Type Type Clinicians Facility Department ID 2021-07-28 2021-07-28 Outpatient Jared GARCIA [facility] [id number] Univers 14:30:00 14:30:00 ANIBAL [id number] [facility] 2021-07-25 2021-07-25 Outpatient Jared KULKARNI [facility] [id number] Univers 14:30:00 14:30:00 WONDIFUL [id number] ity o f [facility] 2021-07-21 2021-07-21 Outpatient Jared GARCIA [facility] [id number] Univers 13:30:00 13:30:00 ANIBAL [id number] [facility] 2021-06-09 2021-06-09 Outpatient Jared SCRUGGS [facility] [id number] Univers 13:30:00 13:30:[address] [facility] 2021-06-09 2021-06-09 Imm/Inj Nurse, Adc Pob Immunization [facility] [id number] Univers 12:59:38 13:01:52 Visit Reginaldo Scruggs [id number] [facility] [id number] Linsey BHATTI [phone] [place] [address] 2021-05-29 2021-05-29 Outpatient HOME [facility] [id number] Univers 16:00:00 16:00:00 WONDIFUL [id number] ity o f [facility] 2021-05-29 2021-05-29 Outpatient Jared KULKARNI [facility] [id number] Univers 16:00:00 16:00:00 WONDIFUL ity o f [facility] 2021-05-09 2021-05-09 [facility] [id number] Univers 15:00:00 15:00:00 WONDIFUL [id number] ity o f [facility] 2021-05-02 2021-05-02 [facility] [id number] Univers 00:00:00 00:00:00 Secure Msg Wondiful A [facility] [id number] ity of [place] [id number] Ankit as Jacques?Blea [id number] [address] Medical Office [facility] 2021-04-05 2021-04-05 [facility]phone [facility] [id number] Univers 00:00:00 00:00:00 [facility] [id number] ity of [place] [id number] Ankit as Jacques?Blea [id number] [address] Medical Office [facility] 2021-04-03 2021-04-03 Hospital [facility] [id number] Univers 14:30:33 23:59:00 Encounter Wondiful A [place] [id number] ity of [place] [id number] [place] [phone] [address] 2021-04-03 2021-04-03 [facility] [id number] [id number] Univers 00:00:00 00:00:00 WONDIFUL [id number] ity o f [facility] 2021-04-03 2021-04-03 [facility] [id number] Univers 00:00:00 00:00:00 WONDIFUL ity o f [facility] 2021-04-03 2021-04-03 Orders Doctor DIEGO [id number] Univers 00:00:00 00:00:00 Only Unassigned, REENA [id number] ity of [place] [facility] [id number] Ankit as [phone] [address] 2021-03-29 2021-03-29 Outpatient R HOME, [facility] [id number] [id number] Univers 14:20:00 14:20:00 WONDIFUL [id number] ity o f [facility] 2021-03-29 2021-03-29 [facility] [id number] Univers 00:00:00 00:00:00 WONDIFUL ity o f [facility] 2021-03-28 2021-03-28 Outpatient CRISTAL NICOLE CRISTAL [id number] Cristal 15:00:00 15:00:00 SAV hamm 2021-03-24 2021-03-24 [facility] [id number] Univers 14:05:46 15:03:09 Visit Toshia Flynn [id number] [id number] [phone] [place] criss[place] [address] 2021-03-24 2021-03-24 [facility] [id number] Univers 14:30:00 14:30:00 TOSHIA [id number] [facility] 2021-03-24 2021-03-24 Outpatient R [facility] [id number] Univers 14:30:00 14:30:00 TOSHIA [facility] 2021-03-21 2021-03-21 Outpatient [facility] [id number] Univers 10:15:00 10:15:00 [id number] [facility] 2021-[facility] 2021-03-21 Outpatient R [facility] [id number] Univers 10:15:00 10:15:[facility] 2021-03-17 2021-03-17 [facility] [id number] Univers 12:50:54 14:20:18 Visit Violetta [facility] [id number] it[place] [id number] Ankit as Jacques?Blea [phone] Me crissy carmona [address] [place] [address] Medical Office Building 2021-03-17 2021-03-17 Outpatient Jared KULKARNI [facility] [id number] P-20 Univers 13:30:00 13:30:00 WONDIFUL [id number] ity o f [facility] 2021-03-17 2021-03-17 Outpatient Jared KULKARNI [facility] [id number] Univers 13:30:00 13:30:00 WONDIFUL ity o f [facility] 2021-03-17 2021-03-17 Orders Doctor BRANDIE [id number] Univers 00:00:00 00:00:00 Only Unassigned, REENA [id number] ity of [place] [facility] [id number] Ankit as [id number] [address] 2020-09-21 2020-09-21 Outpatient [facility] [id number] Univers 10:00:00 10:00:00 [id number] [facility] 2020-09-21 2020-09-21 Outpatient Jared WILSON [facility] [id number] Univers 10:00:00 10:00:00 ABENA [facility] 2020-09-20 2020-09-20 Outpatient Jared WILSON [facility] [id number] Univers 15:50:00 15:50:00 ABENA [id number] [facility] 2020-09-20 2020-09-20 Outpatient Jared WILSON [facility] [id number] Univers 15:50:00 15:50:00 ABENA [facility] 2020-08-23 2020-08-23 Outpatient Jared WILSON [facility] [id number] Univers 10:50:00 10:50:00 ABENA [id number] [facility] 2020-08-23 2020-08-23 Outpatient Jared WILSON [facility] [id number] Univers 10:50:00 10:50:00 ABENA [facility] 2020-06-08 2020-06-08 Outpatient ROBYN [facility] [id number] 08:31:22 08:43:45 Héctor nelson 2020-06-07 2020-06-07 Outpatient COLIN APARICIO MDA MDA [id number] 13:48:37 13:48:37 SYLWIA nelson 2020-06-07 2020-06-07 Outpatient COLIN APARICIO MDA MDA [id number] 13:38:39 13:42:40 SYLWIA nelson 2020-03-22 2020-03-22 Outpatient [facility] [id number] [place] 00:00:00 00:00:00 [address] 2020-03-03 2020-03-03 Outpatient [facility] [id number] [place] 00:00:00 00:00:00 CAL[address] [address] 2020-03-03 2020-03-03 [facility] [id number] [place] 00:00:00 00:00:00 [place] [address] Results This patient has no known results.
[2021-06-10 17:27] LABS: Absolute Lymphocytes (CBC) 1.5 K/uL (0.7-4.9); Basophils % 0.2 % (0-1.3); Hematocrit 39.2 % (36.0-45.0); Lymphocytes % 16.5 % (15.3-44.8); MPV 8.8 fL (7.6-11.3)
[2021-06-10 17:28] LABS: Protime INR 1.09
--- NOTE | 2021-06-10 17:48 | RAD REPORT ---
EXAM DESCRIPTION: CT - Head Brain Wo Cont - 06/10/2021 5:31 pm CLINICAL HISTORY: syncope vs seizure Headache, drowsiness COMPARISON: Head Brain Wo Cont dated 09/10/2018; HEAD BRAIN W O CONTRAST dated 08/27/2012 TECHNIQUE: All CT scans are performed using dose optimization technique as appropriate and may inclu de automated exposure control or mA/KV adjustment according to patient size. FINDINGS: No intracranial hemorrhage, hydrocephalus or extra-axial fluid collection.No areas of brai n edema or evidence of midline shift. The paranasal sinuses and mastoids are clear. The calvarium is intact. IMPRESSION: No acute intracranial abnormality.
[2021-06-10] MEDS ORDERED: NA CHLORIDE 0.9% 1,000 ML ONE (17:54)
[2021-06-10 18:18] LABS: Albumin 3.7 g/dL (3.4-5.0); BUN Blood Urea Nitrogen 9 mg/dL (7-18); Bicarbonate 26 mmol/L (21-32); Bilirubin Direct < 0.1 mg/dL (0-0.2); Glucose Level 126 mg/dL (74-106); Magnesium 2.5 mg/dL (1.8-2.4); Potassium 3.8 mmol/L (3.5-5.1); Sodium Level 138 mmol/L (136-145)
[2021-06-10 18:34] LABS: ALT/SGPT 22 U/L (12-78); Alkaline Phosphatase 129 U/L (45-117); Bilirubin Total 0.6 mg/dL (0.2-1.0); Creatine Phosphokinase 131 U/L (26-192); Protein, Total 8.3 g/dL (6.4-8.2); Troponin (Emerg Dept Use Only) < 0.02 ng/mL (0.0-0.045)
[2021-06-10 18:35] LABS: AST/SGOT 24 U/L (15-37)
--- NOTE | 2021-06-10 18:44 | ER ---
Nurse's Notes [facility] Name: Trisha Ashton Age: 50 yrs Sex: Female : 1970 Arrival Date: 06/10/2021 Time: 16:50 Bed 4 Private MD: Diagnosis: Syncope;Orthostatic hypotension Presentation: 06/10 16:52 Chief complaint: EMS states: "She [place] at the [place] eating a funnel cake when she ss suddenly felt ill and had a syncopal episode. Pt was reportedly unresponsive for a total of two minutes and woke up complaining of dizziness, headache and feeling tired." Pt's only complaint at this time is headache 10/29. Coronavirus screen: Client denies travel out of the [place] in the last 14 days. Ebola Screen: Patient denies exposure to infectious person. Patient denies travel to an Ebola-affected area in the 21 days before illness onset. Initial Sepsis Screen: Does the patient meet any 2 criteria? No. Patient's initial sepsis screen is negative. Does the patient have a suspected source of infection? No. Patient's initial sepsis screen is negative. Risk Assessment: Do you want to hurt yourself or someone else? Patient reports no desire to harm self or others. Onset of symptoms was June 10, 2021. Care prior to arrival: Glucose check: 118. 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 - Social history:: Smoking status: Patient denies any tobacco usage or history of. - Family history:: not pertinent. - Hospitalizations: : No recent hospitalization is reported. Screenin:00 Abuse screen: Denies threats or abuse. Nutritional screening: No deficits noted. aa5 Tuberculosis screening: No symptoms or risk factors identified. Fall Risk None identified. Assessment: 16:52 General: Appears comfortable, Behavior is calm, cooperative, Reports feeling "tired". aa5 Pain: Complains of pain in head Pain currently is 4 out of 10 on a pain scale. Quality of pain is described as aching. Neuro: Level of Consciousness is awake, alert, obeys commands, Oriented to person, place, time, situation, [employer] are equal bilaterally Moves all extremities. Speech is normal, Facial symmetry appears normal, Reports headache Reports syncopal episode, reports feeling dizzy and nauseated prior to syncopal episode. Pt states "I got the covid vaccine booster shot yesterday". Pt currently denies dizziness and denies feeling lightheaded. . Cardiovascular: Heart tones S1 S2 present Rhythm is sinus rhythm. Respiratory: Airway is patent Respiratory effort is even, unlabored, Respiratory pattern is regular, symmetrical. GI: Reports tolerance of fluids, tolerance of food, Patient currently denies diarrhea, vomiting. : No signs and/or symptoms were reported regarding the genitourinary system. EENT: No signs and/or symptoms were reported regarding the EENT system. Derm: Skin is dry, Skin is normal, Skin temperature is warm. Musculoskeletal: Range of motion: intact in all extremities. 16:52 Reassessment: syncopal episode was witnessed by significant other and significant other aa5 states "she didn't fall, she was sitting down when it happened". 17:20 Reassessment: Pt to CT via stretcher . aa5 18:00 Reassessment: Unable to obtain IV access for CT contrast, was notified. 2 US guided aa5 IV unsuccessful attempts by Lili Steel RN (charge nurse). . 18:20 Reassessment: Dr. Hodge speaking to patient . aa5 18:20 Neuro: Level of Consciousness is awake, alert, obeys commands, Oriented to person, aa5 place, time, situation. Respiratory: Airway is patent Respiratory effort is even, unlabored, Respiratory pattern is regular, symmetrical. Derm: Skin is dry, Skin is normal, Skin temperature is warm. Vital Signs: 16:51 BP 117 / 88; Pulse 85; Resp 16 S; Pulse Ox 100% on R/A; aa5 16:52 Resp 17; Temp 98.3; Weight 86.18 kg; Height 5 ft. 5 in. (165.10 cm); Pain 4/10; ss 17:12 BP 112 / 75 Supine; Pulse 84; aa5 17:14 BP 111 / 81 Sitting; Pulse 88; aa5 17:16 BP 119 / 76 Standing; Pulse 104; aa5 16:52 Body Mass Index 31.62 (86.18 kg, 165.10 cm) ss 17:16 MD notified of orthostatic VS, pt c/o dizziness while standing. aa5 ED Course: 16:50 Patient arrived in ED. ss 16:50 Jermaine Hodge MD is Attending Physician. rn 16:51 Arm band placed on right wrist. aa5 16:51 Patient has correct armband on for positive identification. Placed in gown. Bed in low aa5 position. Call light in reach. Side rails up X2. court recording monitor on. Pulse ox on. NIBP on. 16:53 Aurora Delgado, RN is Primary Nurse. aa5 16:54 Triage completed. ss 17:24 Inserted saline lock: 24 gauge in right hand, using aseptic technique. Blood collected. as6 17:31 CT Head Brain wo Cont In Process Unspecified. EDMS 19:25 No provider procedures requiring assistance completed. IV discontinued, intact, em bleeding controlled, No redness/swelling at site. Pressure dressing applied. Administered Medications: 17:57 Drug: NS 0.9% 1000 ml Route: IV; Rate: 1000 ml; Site: right hand; aa5 Outcome: 18:42 Discharge ordered by MD. rn 19:25 Discharged to home ambulatory, with family. em 19:25 Condition: stable 19:25 Discharge instructions given to patient, Instructed on discharge instructions, follow up and referral plans. medication usage, Demonstrated understanding of instructions, follow-up care. 19:36 Patient left the ED. em Signatures: Dispatcher [employer] EDDE Casey Rivera RN RN Jermaine Hodge MD MD rn Calderon, Audri, JENNIFER RN aa5 Lili Steel RN RN ss Slawson, Ashby, RN RN as6 Corrections: (The following items were deleted from the chart) 17:25 16:55 Arm band placed on right wrist. aa5 19:22 16:52 Derm: Skin is pink, warm \\T\\ dry. aa5 aa5
--- NOTE | 2021-06-10 18:44 | EDPHYS ---
Physician Documentation [facility] Name: Trisha Ashton Age: 50 yrs Sex: Female : 1970 Arrival Date: 06/10/2021 Time: 16:50 Bed 4 Private MD: ED Physician Jermaine Hodge HPI: 06/10 17:13 This 50 yrs old Black Female presents to ER via EMS with complaints of Syncope. rn 17:13 The patient has experienced syncope. Onset: The symptoms/episode began/occurred just rn prior to arrival. Duration: This was a single episode. Associated injury: The patient did not suffer any apparent associated injury. Associated signs and symptoms: Pertinent positives: headache, Pertinent negatives:. 17:14 Current symptoms: headache. The patient has not experienced similar symptoms in the rn past. The patient has not recently seen a physician. Patient reports that the stool, at rest, eating funnel cake, felt warm all over and had a syncopal episode. Bystanders reported some shaking activity, no history of seizures. Reports mild headache. No chest pain or shortness of breath before or after episode. Vital signs were normal and an ECG with EMS which is showing PVCs. Patient denies recent illness. Denies any vomiting or diarrhea. No medication changes. No blood in the stool. Feels much better now without intervention.. 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 - Social history:: Smoking status: Patient denies any tobacco usage or history of. - Family history:: not pertinent. - Hospitalizations: : No recent hospitalization is reported. ROS: 17:14 Constitutional: Negative for fever, chills, and weight loss, Eyes: Negative for injury, rn pain, redness, and discharge, ENT: Negative for injury, pain, and discharge, Neck: Negative for injury, pain, and swelling, Cardiovascular: Negative for chest pain, palpitations, and edema, Respiratory: Negative for shortness of breath, cough, wheezing, and pleuritic chest pain, Abdomen/GI: Negative for abdominal pain, nausea, vomiting, diarrhea, and constipation, Back: Negative for injury and pain, : Negative for injury, bleeding, discharge, and swelling, MS/Extremity: Negative for injury and deformity, Skin: Negative for injury, rash, and discoloration, Neuro: Negative for weakness, numbness, tingling, and seizure. 17:14 All other systems are negative. Exam: 17:14 Constitutional: This is a well developed, well nourished patient who is awake, alert, rn and in no acute distress. Head/Face: Normocephalic, atraumatic. Eyes: Pupils equal round and reactive to light, extra-ocular motions intact. Lids and lashes normal. Conjunctiva and sclera are non-icteric and not injected. Cornea within normal limits. Periorbital areas with no swelling, redness, or edema. Cardiovascular: Regular rate and rhythm. No pulse deficits. Respiratory: No increased work of breathing, no retractions or nasal flaring. Abdomen/GI: Soft, non-tender Skin: Warm, dry with normal turgor. Normal color with no rashes, no lesions, and no evidence of cellulitis. MS/ Extremity: Pulses equal, no cyanosis. Neurovascular intact. Full, normal range of motion. Equal circumference. Neuro: Awake and alert, GCS 15, oriented to person, place, time, and situation. Cranial nerves II-XII grossly intact. Motor strength 5/5 in all extremities. Sensory grossly intact. Cerebellar exam normal Vital Signs: 16:51 BP 117 / 88; Pulse 85; Resp 16 S; Pulse Ox 100% on R/A; aa5 16:52 Resp 17; Temp 98.3; Weight 86.18 kg; Height 5 ft. 5 in. (165.10 cm); Pain 4/10; ss 17:12 BP 112 / 75 Supine; Pulse 84; aa5 17:14 BP 111 / 81 Sitting; Pulse 88; aa5 17:16 BP 119 / 76 Standing; Pulse 104; aa5 16:52 Body Mass Index 31.62 (86.18 kg, 165.10 cm) ss 17:16 MD notified of orthostatic VS, pt c/o dizziness while standing. aa5 MDM: 16:50 Patient medically screened. rn 18:39 Differential Diagnosis: cardiac arrhythmia, idiopathic syncope, vasovagal episode. Data rn reviewed: vital signs, nurses notes, lab test result(s), EKG, radiologic studies, CT scan, and as a result, I will discharge patient. Counseling: I had a detailed discussion with the patient and/or guardian regarding: the historical points, exam findings, and any diagnostic results supporting the discharge/admit diagnosis, lab results, radiology results, the need for outpatient follow up, to return to the emergency department if symptoms worsen or persist or if there are any questions or concerns that arise at home. Response to treatment: the patient's symptoms have markedly improved after treatment, the patient's condition has returned to base line, the patient is now symptom free, and as a result, I will discharge patient. Special discussion: I discussed with the patient/guardian in detail that at this point there is no indication for admission to the hospital. It is understood, however, that if the symptoms persist or worsen the patient needs to return immediately for re-evaluation. Based on the history and exam findings, there is no indication for further emergent testing or inpatient evaluation. I discussed with the patient/guardian the need to see the primary care provider for further evaluation of the symptoms. ED course: Pt markedly improved, + orthostatics, will complete 1L bolus, already feels better, ambulatory to bathroom. Neg trop. No acute ischemia on ECG. Neg CT head. Normal neuro exam. Will dc home with return precautions. . 06/10 16:52 Order name: Basic Metabolic Panel 06/10 16:52 Order name: CBC with Diff; Complete Time: 17:37 06/10 16:52 Order name: CPK; Complete Time: 18:39 06/10 16:52 Order name: Hepatic Function; Complete Time: 18:39 06/10 16:52 Order name: Magnesium; Complete Time: 18:39 06/10 16:52 Order name: Protime (+inr); Complete Time: 17:37 06/10 16:52 Order name: Ptt, Activated; Complete Time: 17:37 06/10 16:52 Order name: Troponin (emerg Dept Use Only); Complete Time: 18:39 06/10 16:52 Order name: EKG; Complete Time: 16:53 06/10 16:52 Order name: Cardiac monitoring; Complete Time: 17:17 06/10 16:52 Order name: CT Head Brain wo Cont; Complete Time: 17:55 06/10 16:52 Order name: Basic Metabolic Panel; Complete Time: 18:39 EDMS 06/10 16:52 Order name: EKG - Nurse/Tech; Complete Time: 17:18 rn 06/10 16:52 Order name: IV Saline Lock; Complete Time: 17:18 rn 06/10 16:52 Order name: Labs collected and sent; Complete Time: 17:18 rn 06/10 16:52 Order name: O2 Per Protocol; Complete Time: 17:18 rn 06/10 16:52 Order name: O2 Sat Monitoring; Complete Time: 17:18 rn 06/10 16:52 Order name: Orthostatics; Complete Time: 17:21 rn Administered Medications: 17:57 Drug: NS 0.9% 1000 ml Route: IV; Rate: 1000 ml; Site: right hand; aa5 Disposition Summary: 06/10/21 18:42 Discharge Ordered Location: Home rn Problem: new rn Symptoms: have improved rn Condition: Stable rn Diagnosis - Syncope rn - Orthostatic hypotension rn Followup: rn - With: Private Physician - When: As needed - Reason: Recheck today's complaints, Re-evaluation by your physician Discharge Instructions: - Discharge Summary Sheet rn - Orthostatic Hypotension rn - Syncope rn Forms: - Medication Reconciliation Form rn - Thank You Letter rn - Antibiotic paid intern - Prescription Opioid Use rn Signatures: Dispatcher [employer] Jermaine Dominguez MD MD rn Calderon, Audri RN RN aa5 Lili Steel, JENNIFER RN ss Corrections: (The following items were deleted from the chart) 18:47 16:52 Urine Dipstick-Ancillary ordered. rn nikky 18:50 17:14 Head Angio+CT.RAD.BRZ ordered. EDIN EDIN
[2021-06-10 19:50] VITALS: O2SAT 100
[2021-06-10 19:51] VITALS: TEMP 98.3
[2021-06-10 19:54] VITALS: BP 119/76
--- NOTE | 2021-06-14 08:16 | EKG ---
Test Date: 2021-06-10 Test Time: 17:06:24 Stone Unloader: DHIRAJ MEASUREMENT RESULTS: Intervals: Rate: 91 SC: 140 QRSD: 86 QT: 348 QTc: 428 [place]: P: 33 SC: 140 QRS: 36 T: 14 INTERPRETIVE STATEMENTS: Normal sinus rhythm Possible Left atrial enlargement Borderline ECG Compared to ECG 03/18/2016 20:01:37 No significant changes Electronically Signed On 06-14-21 08:04:45 STATISTICIAN THEORETICAL by Evaristo Sánchez
== END 2021-06-10 19:36 | disposition home or self-care (01) ==
LOC: ER 16:45
DX: I95.1 Orthostatic hypotension (principal); I10 Essential (primary) hypertension; Z88.1 Allergy status to other antibiotic agents; Z88.5 Allergy status to narcotic agent
CPT/HCPCS: 93005; 85025; 80048; 36415; 83735; 82550; 85610; 80076; 85730; 84484; 70450; 99284; J7030

== ENCOUNTER 2021-12-05 15:58 | Emergency (ER) | payer BC ==
--- OUTSIDE RECORDS SUMMARY | 2021-12-05 16:02 | XMS REPORT | Continuity of Care Document ---
:1970 Author Organization [facility] t Address [address] [place] [address] Care Team Providers Name Role Phone JAYMIE Primary Care Physician Unavailable FILI Attending Clinician Unavailable MAXINE Attending Clinician Unavailable Home THOMAS, A Attending Clinician Neisha BHAT Attending Clinician Unavailable Doctor Unassigned, Name Attending Clinician Unavailable Fili THOMAS Attending Clinician BONNIE Attending Clinician Unavailable JAYMIE Attending Clinician Unavailable ALESSANDRA Attending Clinician Unavailable KELSEY Attending Clinician Unavailable MIRYAM Attending Clinician Unavailable FILI Admitting Clinician Unavailable Payers Payer Name Policy Type Policy Number Effective Date Expiration Date S bernadette [facility] [id number] 2017 00:00:00 BCBS 2 [id number] 2021 00:00:00 [facility] [place] [id number] 2017 BLUE/BLUE 00:00:00 ESSENTIALS Problems Condition Condition Condition Status Onset Resolution Last Treating Co mments Source Name Details Category Date Date Treatment Clinician Date Rectal Rectal Disease [facility] Formattin ity of 00:00: g of this [place] 00 note Medical might be Branch different from the original. Added automatic ally from request for surgery [id number] Obesity Obesity Disease Active Univers (BMI (BMI 9-03 ity of 30-39.9) 30-39.9) 00:00: [place] 00 Medical Branch Hyperchole Hyperchole Disease Active U nivers sterolemia sterolemia 03-22 it y of 00:00: Medical Branch Prediabete Prediabete Disease Active U nivers s s 03-22 ity of 00:00: [place] [facility] History of History of Disease Active U nivers rectal rectal 8- ity of cancer cancer 00:00: Medical Branch Arthritis Arthritis Disease Active Uni vers of left of left 03-17 ity of foot foot 00:00: [place] [facility] Chronic Chronic Disease Active 2016-07 Univers neck and neck and 03 ity of back pain back pain [place] Rotator Rotator Disease Active Univers cuff cuff 04-19 [place]y of tendinitis tendinitis [place] , [place] 00 [place] Trochanter Trochanter Disease Active U nivers ic ic 04-19 ity of bursitis bursitis 00:00: [place] of left of left 00 Medical hip hip Branch Rectal Rectal Disease Active MD cancer cancer 3-20 Anderso 00:00: n 00 Anemia Anemia Disease Active Univers 1-15 ity of 00:00: [place] [facility] Allergies, Adverse Reactions, Alerts Allergy [...] Univ ers INGREDI 0-14 ity of 00:00: [place] 00 [facility] SULFAMET Allergy Active [facility] Family History Family Member Diagnosis Comments Start Date Stop Date Source Cousin -Breast cancer MD Claribel nelson Natural father -Unknown cancer MD Gabby luis Social History Social Habit Start Date Stop Date Quantity Comments Source History SDOH University o f Alcohol Frequency [place] M ed[facility] History SDOH University o f Alcohol Std [place] [facility] Drinks Branch History SDOH University o f Alcohol Binge [place] [facility] al Branch Exposure to Not sure [facility] SARS-CoV-2 [facility] (event) Branch Alcohol Comment 2021-03-17 2021-03-17 occasional wine Univ ersity of 00:00:00 00:00:00 [facility] Alcohol intake 2020-06-07 2020-06-07 Current MD Claribel nelson 00:00:00 00:00:00 non-drinker of alcohol (finding) Tobacco use and 2016-10-08 2016-10-08 Smokeless tobacco MD Mead exposure 00:00:00 00:00:00 non-user Sex Ass[birth year] At [birth year] Universit y of 00:00:00 00:00:00 [facility] Smoking Status Start Date Stop Date Source Never smoker [place] [facility] Medications Ordered Filled Start Stop Current Ordering Indication Dosage Frequency Signature Comments Components Source Medication Medication Date Date Medication? Clinician (SIG) Name Name aquilino stanford 2021- No [id number] 117mL Take 117 Univers ssium,mag 1-07 01-08 mL by ity of sulfates 00:00: 05:59 mouth [place] (SUPREP 00 :00 now for 1 Medical BOWEL PREP dose. Branch KIT) 17.5-3.13-1 .6 gram butalbital- 2020-07 Yes [id number] 1{tbl} Take 1 Univers acetaminoph 1-28 tablet by ity of en-caff 00:00: mouth [place] 50-325-40 00 every 4 Medical mg tablet (four) Branch hours as needed for Pain (scale 7-10) (HEADACHE) . butalbital- 2020-07 Yes [id number] 1{tbl} Take 1 Univers acetaminoph 1-28 tablet by ity of en-caff 00:00: mouth [place] 50-325-40 00 every 4 Medical mg tablet (four) Branch hours as needed for Pain (scale 7-10) (HEADACHE) . butalbital- 2020-07 Yes [id number] 1{tbl} Take 1 Univers acetaminoph 1-28 tablet by ity of en-caff 00:00: mouth [place] 50-325-40 00 every 4 Medical mg tablet (four) Branch hours as needed for Pain (scale 7-10) (HEADACHE) . butalbital- 2020-07 Yes [id number] 1{tbl} Take 1 Univers acetaminoph 1-28 tablet by ity of en-caff 00:00: mouth [place] 50-325-40 00 every 4 Medical mg tablet (four) Branch hours as needed for Pain (scale 7-10) (HEADACHE) . butalbital- 2020-07 Yes [id number] 1{tbl} Take 1 Univers acetaminoph 1-28 tablet by ity of en-caff 00:00: mouth [place] 50-325-40 00 every 4 Medical mg tablet (four) Branch hours as needed for Pain (scale 7-10) (HEADACHE) . rosuvastati Yes [id number] 5mg Take 1 Univers n 5 mg 9-01 tablet by ity of tablet 00:00: mouth at [place] 00 bedtime. Medical Branch rosuvastati Yes [id number] 5mg Take 1 Univers n 5 mg 9-01 tablet by ity of tablet 00:00: mouth at [place] 00 bedtime. Medical Branch rosuvastati Yes [id number] 5mg Take 1 Univers n 5 mg 9-01 tablet by ity of tablet 00:00: mouth at [place] 00 bedtime. Medical Branch rosuvastati Yes [id number] 5mg Take 1 Univers n 5 mg 9-01 tablet by ity of tablet 00:00: mouth at [place] 00 bedtime. Medical Branch rosuvastati Yes [id number] 5mg Take 1 Univers n 5 mg 9-01 tablet by ity of tablet 00:00: mouth at [place] 00 bedtime. Medical Branch fluticasone 2019-07 Yes 1{puff} Inhale 1 MD -vilanterol 1-16 puff by Riley littlejohn (BREO 12:43: mouth n ELLIPTA) 20 daily. [...] 0.05 % affected cream area(s) as needed. gabapentin Yes 3{capsu Take 3 MD (NEURONTIN) [...] Immunizations Ordered Filled Immunization Date Status Comments [facility] e Immunization Name Name SARS-COV-2 COVID-19 2021-06-09 Completed Unive rsity of MODERNA BOOSTER 00:00:00 [facility] ical VACCINE Branch SARS-COV-2 COVID-19 2021-06-09 Completed Unive rsity of MODERNA BOOSTER 00:00:00 [facility] ical VACCINE Branch SARS-COV-2 COVID-19 2021-06-09 Completed Unive rsity of MODERNA BOOSTER 00:00:00 [facility] ical VACCINE Branch SARS-COV-2 COVID-19 2021-06-09 Completed Unive rsity of MODERNA BOOSTER 00:00:00 [place] Med ical VACCINE Branch SARS-COV-2 COVID-19 2021-06-09 Completed Unive rsity of MODERNA BOOSTER 00:00:00 [facility] ical VACCINE Branch SARS-COV-2 COVID-19 2020-09-21 Completed Unive rsity of MODERNA VACCINE 00:00:00 [facility] ical Branch SARS-COV-2 COVID-19 2020-09-21 Completed Unive rsity of MODERNA VACCINE 00:00:00 [facility] ical Branch SARS-COV-2 COVID-19 2020-09-21 Completed Unive rsity of MODERNA VACCINE 00:00:00 [facility] ical Branch SARS-COV-2 COVID-19 2020-09-21 Completed Unive rsity of MODERNA VACCINE 00:00:00 [facility] ical Branch SARS-COV-2 COVID-19 2020-09-21 Completed Unive rsity of MODERNA VACCINE 00:00:00 [facility] ical Branch SARS-COV-2 COVID-19 2020-08-23 Completed Unive rsity of MODERNA VACCINE 00:00:00 [facility] ical Branch SARS-COV-2 COVID-19 2020-08-23 Completed Unive rsity of MODERNA VACCINE 00:00:00 [facility] ical Branch SARS-COV-2 COVID-19 2020-08-23 Completed Unive rsity of MODERNA VACCINE 00:00:00 [facility] ical Branch SARS-COV-2 COVID-19 2020-08-23 Completed Unive rsity of MODERNA VACCINE 00:00:00 [facility] SARS-COV-2 COVID-19 2020-08-23 Completed Unive rsity of MODERNA VACCINE 00:00:00 [facility] Influenza Virus 2019-04-30 Completed Universit y of Vaccine 00:00:00 [facility] Influenza Virus 2019-04-30 Completed Universit y of Vaccine 00:00:00 [facility] Influenza Virus 2019-04-30 Completed Universit y of Vaccine 00:00:00 [facility] Influenza Virus 2019-04-30 Completed Universit y of Vaccine 00:00:00 [facility] Influenza Virus 2019-04-30 Completed Universit y of Vaccine 00:00:00 [facility] Pneumococcal 13 2016-08-14 Completed Universit y of Conjugate, PCV13 00:00:00 [facility] dical (Prevnar 13) Branch AP 2016-08-14 Completed University of 00:00:00 [facility] Pneumococcal 13 2016-08-14 Completed Universit y of Conjugate, PCV13 00:00:00 [facility] dical (Prevnar 13) Branch AP 2016-08-14 Completed University of 00:00:00 [facility] Pneumococcal 13 2016-08-14 Completed Universit y of Conjugate, PCV13 00:00:00 [facility] dical (Prevnar 13) Branch [facility] 2016-08-14 Completed University of 00:00:00 [facility] Pneumococcal 13 2016-08-14 Completed Universit y of Conjugate, PCV13 00:00:00 [facility] dical (Prevnar 13) Branch [facility] 2016-08-14 Completed University of 00:00:00 [facility] Pneumococcal 13 2016-08-14 Completed Universit y of Conjugate, PCV13 00:00:00 [facility] dical (Prevnar 13) Branch [facility] 2016-08-14 Completed University of 00:00:00 [facility] Vital Signs Vital Name Observation Time Observation Value Comments Source Systolic blood 2021-07-28 20:33:00 158 mm[Hg] Univer sity of pressure [facility] Diastolic blood 2021-07-28 20:33:00 85 mm[Hg] Unive rsity of pressure [facility] Heart rate 2021-07-28 20:33:00 70 /min [facility] Body temperature 2021-07-28 20:33:00 36 [facility] height 2021-07-28 20:33:00 165.1 cm [facility] Body weight 2021-07-28 20:33:00 89.495 kg [facility] BMI 2021-07-28 20:33:00 32.83 kg/m2 [facility] Oxygen saturation in 2021-07-28 20:33:00 90 /min [facility] Arterial blood by [facility] Pulse oximetry Branch Procedures Procedure Date / Time Performed Performing Clinician Sourc e BI BREAST CYST 2021-08-15 16:07:12 Violetta Bhat of [facility] ASSIGNMENT OF BENEFITS 2021-08-15 14:28:58 Doctor Unassigned, No [facility] Name [facility] DISCLOSURE AND CONSENT 2021-07-28 06:01:00 Doctor Unassigned, No [facility] MEDICAL & SURGICAL Name [facility] h PROCEDURES - HYSTEY Plan of Care Planned Activity Planned Date Details Comments Source Future Scheduled Test 1982 00:00:00 COVID-19 Vaccination MD [place] (1) [code = COVID-19 Vaccination (1)] Encounters Start End Encounter Admission Attending Care Care Encounter Source Date/Time Date/Time Type Type Clinicians Facility Department ID 2021-08-04 [id number] Univers [facility]:44[facility]22-07-18 2022-07-18 [facility] [id number] Univers 13:00:00 [facility]00[facility] 2021-12-11 2021-12-11 [facility] [id number] Univers 09:30:00 09:30:00 [facility] [id number] [facility] 2021-12-11 2021-12-11 [facility] [id number] Univers 09:30:00 09:30:00 [facility] 2021-08-18 2021-08-18 Outpatient R [facility] [id number] Univers 13:30:00 13:30:00 [id number] [facility] 2021-08-15 2021-08-15 [facility] [id number] Univers 08:30:34 23:59:00 [id number] [id number] [facility] [id number] [facility] 806 Branch 2021-08-15 2021-08-15 [facility] [id number] Univers 08:29:38 08:29:38 VIOLETTA harrington o f [facility] 2021-08-15 2021-08-15 [facility] [id number] Univers 08:29:38 08:29:38 Encounter Violetta CONNOR [id number] ity of [place] [id number] [facility] [id number] [facility] [address] 2021-08-15 2021-08-15 Orders Doctor BRANDIE [id number] Univers 00:00:00 00:00:00 Only Unassigned, REENA [id number] ity of [facility] [id number] Ankit as [id number] [facility] [address] 2021-07-28 2021-07-28 Office [facility] [id number] Univers 14:45:00 15:13:12 Visit Anibal KIRKLAND [id number] ity of [facility] [id number] [facility] AT [id number] Ak crissy [address] 2021-07-28 2021-07-28 Outpatient R [facility] [id number] Univers 14:45:00 15:13:12 ANIBAL ity of [facility] 2021-07-28 2021-07-28 Orders Doctor BRANDIE [id number] Univers 00:00:00 00:00:00 Only Unassigned, REENA [id number] ity of [facility] [id number] Ankit as [id number] [address] 2021-03-28 2021-03-28 Outpatient CRISTAL NICOLE [id number] Cristal 15:00:00 15:00:00 SAV hamm 2020-06-08 2020-06-08 Outpatient ROBYN ALTAMIRANO MDA MDA [id number] 08:31:22 08:43:45 Héctor nelson 2020-06-07 2020-06-07 Outpatient COLIN APARICIO MDA MDA [id number] 13:48:37 13:48:37 SYLWIA nelson 2020-06-07 2020-06-07 Outpatient COLIN APARICIO MDA MDA [id number] 13:38:39 13:42:40 SYLWIA nelson 2020-03-22 2020-03-22 Outpatient KELSEY [facility] [id number] [place] 00:00:00 00:00:00 AG[address] 2020-03-03 2020-03-03 Outpatient MIRYAM [facility] [id number] [place] 00:00:00 00:00:00 CAL[address]ON [address] 2020-03-03 2020-03-03 Outpatient MIRYAM [facility] [id number] 00:00:00 00:00:00 CALDERON [address] Results This patient has no known results.
--- NOTE | 2021-12-05 18:33 | ER ---
Nurse's Notes [facility] Name: Trisha Ashton Age: 51 yrs Sex: Female : 1970 Arrival Date: 12/05/2021 Time: 16:00 Bed Waiting Private MD: Diagnosis: Presentation: 12/05 16:21 Chief complaint: Patient states: Left side neck pain that started last night. Now ww unable to turn her neck and pain, numbness and tingling radiating down the left arm. Coronavirus screen: Client denies travel out of the [place] in the last 14 days. Ebola Screen: Patient denies travel to an Ebola-affected area in the 21 days before illness onset. Initial Sepsis Screen: Does the patient meet any 2 criteria? No. Patient's initial sepsis screen is negative. Does the patient have a suspected source of infection? No. Patient's initial sepsis screen is negative. Risk Assessment: Do you want to hurt yourself or someone else? Patient reports no desire to harm self or others. Onset of symptoms was December 05, 2021. 16:21 Method Of Arrival: Ambulatory ww 16:21 Acuity: GARRETT 4 ww Triage Assessment: 16:22 General: Appears in no apparent distress. Behavior is calm, cooperative. Pain: ww Complains of pain in scalp and left arm. 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 - Social history:: Smoking status: Patient denies any tobacco usage or history of. Vital Signs: 16:21 BP 145 / 78; Pulse 87; Resp 18; Temp 98.3; Pulse Ox 99% ; Weight 74.84 kg; Height 5 ft. ww 5 in. (165.10 cm); 16:21 Body Mass Index 27.46 (74.84 kg, 165.10 cm) ww ED Course: 16:00 Patient arrived in ED. as 16:22 Triage completed. ww 16:22 Arm band placed on left wrist. ww 16:50 Prashant Sen [facility] portia 16:50 Ananda Mead MD is Attending Physician. portia Administered Medications: No medications were administered Outcome: 18:32 Patient left the ED. ww Signatures: Prashant Sen PA PA jmm Martinez, Amelia as Wood, Whitney, RN RN ww
[2021-12-05 18:45] VITALS: BP 145/78; TEMP 98.3; O2SAT 99
== END 2021-12-05 18:32 | disposition left against medical advice (07) ==
LOC: ER 15:58
DX: Z02.9 Encounter for administrative examinations, unspecified (principal)
CPT/HCPCS: 99281

== ENCOUNTER 2023-07-03 18:46 | Emergency (ER) | payer BC ==
--- OUTSIDE RECORDS SUMMARY | 2023-07-03 18:49 | XMS REPORT | Clinical Summary ---
Author Name Unknown Organization [facility] Address [address] [place] [address] Care Team Providers Care Circus Supervisor Name Role Phone Dimple Kenyon MD Unavailable [phone] Gary Peres MD Primary Care Provider [phone] Allergies Active Allergy Reactions Criticality Noted Date Comments Morphine High 10/26/2016 Other reaction(s): Other (See Comments) Cardiac event, needed CPR. Other reaction(s): Other - See comments "Flat line" Hydrocodone-Acetamin ophen High 11/20/2017 "Foggy Vision " , like moving in slow motion Other Diarrhea,Nausea And Vomiting High 07/21/2014 Na Benzoate-sulfamethoxa zole-trimethoprim Causes Diarrhea, Nausea and Vomiting (Nausea And Vomiting) streoids : Severe abdominal cramping Sulfa (Sulfonamide Antibiotics) Nausea And Vomiting 09/22/2017 Sulfamethoxazole-Tri methoprim Diarrhea,Nausea And Vomiting Medium 10/07/2014 Medications Medication Sig Dispensed Refills Start Date End Date Status gabapentin (NEURONTIN) 300 mg capsule Take 3 capsules by mouth 3 (three) times a day. 0 09/13/2016 Active HYDROcodone-acetamino phen (NORCO) 10 mg-325 mg per tablet Take 2 tablets by mouth as needed. Last took norco Yesterday 0 08/14/2016 Active tiZANidine (ZANAFLEX) 2 MG capsule Take 1 capsule by mouth as needed. 0 01/18/2016 Active ibuprofen (ADVIL,MOTRIN) 800 mg tablet Take 1 tablet by mouth as needed. 0 04/16/2016 Active fluticasone-vilantero l (BREO ELLIPTA) 200-25 mcg/dose Inhale 1 puff by mouth daily. 0 Active clobetasol (TEMOVATE) 0.05% ointment Apply 1 application topically to affected area(s) as needed. 0 Active betamethasone dipropionate (DIPROLENE) 0.05 % cream Apply 1 application topically to affected area(s) as needed. 0 01/28/2018 Active amLODIPine (NORVASC) 5 mg tablet Take 5 mg by mouth daily. 0 04/30/2019 Active cholecalciferol, vitamin D3, (VITAMIN D3) 50,000 units tab tablet Take 1 tablet by mouth once a week. 0 05/03/2019 Active Active Problems Problem Noted Date Diagnosed Date Rectal cancer 10/08/2016 Cancer Staging:Pathologic stage from 07/07/2014:Stage IIIA(pT2, pN1a, cM0) - Signed by Gary Peres MD on 10/29/2017 Surgical History Surgery Date Site/Laterality Comments COLON SURGERY COLONOSCOPY ANKLE FRACTURE SURGERY 07/22/1999 - 07/21/2000 Right TONSILLECTOMY Medical History Medical History Date Comments Neuropathy secondary chemot herapy Tooth disorder Chronic bronchitis Sexual dysfunction Menopause Anemia Fracture wrist- right Depressive disorder Anxiety Eczema Rectal cancer Arthritis Cardiac murmur Family History Medical History Relation Name Comments -Breast cancer Cousin -Unknown cancer Father Relation Name Status Comments Cousin Father Social History Tobacco Use Types Packs/Day Years Used Date Smoking Tobacco: Never Smokeless Tobacco: Never Alcohol Use Standard Drinks/Week Comments No 0 (1 standard drink = 0.6 oz pur e alcohol) Sex and Gender Information Value Date Recorded Sex Assigned at Female 06/06/2020 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
--- NOTE | 2023-07-03 19:31 | RAD REPORT ---
EXAM DESCRIPTION: RAD - Foot Right 3 View - 07/03/2023 7:16 pm CLINICAL HISTORY: PAIN COMPARISON: No comparisons FINDINGS: Diffuse osteopenia is seen. No acute fracture or dislocation. Small plantar calcaneal spur .
--- NOTE | 2023-07-03 19:31 | RAD REPORT ---
EXAM DESCRIPTION: RAD - Ankle Right 3 View - 07/03/2023 7:16 pm CLINICAL HISTORY: PAIN COMPARISON: No comparisons FINDINGS: Prominent soft tissue swelling, greatest laterally. The bones are diffusely osteopenic. No acute fracture or dislocation. Small plantar calcaneal spur.
[2023-07-03] MEDS ORDERED: KETOROLAC 30 MG/ML INJ ONE (19:38)
[2023-07-03] MEDS ORDERED: HYDROCODONE/APAP 5/325 MG TAB ONE (19:38)
--- NOTE | 2023-07-03 19:51 | EDPHYS ---
Physician Documentation [facility] Name: Trisha Ashton Age: 52 yrs Sex: Female : 1970 Arrival Date: 07/03/2023 Time: 18:46 Bed 10 Private MD: MENDEZ Physician Ananda Mead HPI: 07/03 19:49 This 52 yrs old Black Female presents to ER via Wheelchair with complaints of Ankle kb Injury. 19:49 Patient is a 52-year-old female who presents for pain to right ankle and foot after kb being tripped by her dog and twisting it. . Historical: - Allergies: 18:50 Bactrim; cm10 18:50 Morphine; cm10 - PMHx: 18:50 Cancer; pt in remission for one year now; chronic L shoulder pain; degenerative spine; cm10 Hypertensive disorder; neuropathy; - PSHx: 18:50 Ankle; colon resection; cm10 - Immunization history:: Adult Immunizations unknown. - Social history:: Smoking status: Patient denies any tobacco usage or history of. ROS: 19:48 Constitutional: Negative for fever, chills, and weight loss, kb 19:48 MS/extremity: Positive for decreased range of motion, pain, swelling, tenderness, of the right foot and right ankle, 19:48 All other systems are negative, Exam: 19:48 Constitutional: This is a well developed, well nourished patient who is awake, alert, kb and in no acute distress. Head/Face: Normocephalic, atraumatic. ENT: Moist Mucous membranes Respiratory: Respirations even and unlabored. No increased work of breathing. Talking in full sentences Skin: Warm, dry with normal turgor. Normal color. Neuro: Awake and alert, GCS 15, oriented to person, place, time, and situation. Moves all extremities. Normal gait. 19:48 Musculoskeletal/extremity: Extremities: grossly normal except: noted in the right foot and right ankle: decreased ROM, pain, swelling, tenderness, ROM: limited active range of motion due to pain, Circulation is intact in all extremities. Sensation intact. Weight bearing: is unable to bear weight, Vital Signs: 18:49 BP 142 / 97; Pulse 97; Resp 18; Temp 97.1; Pulse Ox 99% on R/A; Weight 97.52 kg; Height cm10 5 ft. 5 in. ; Pain 10/10; 20:03 BP 140 / 94; Pulse 94; Resp 18; Pulse Ox 99% ; cp4 18:49 Body Mass Index 35.78 (97.52 kg, 165.1 cm) cm10 18:49 Pain Scale: Adult cm10 MDM: 18:50 Patient medically screened. kb 19:49 Differential diagnosis: fracture, sprain. Data reviewed: vital signs, nurses notes. kb Counseling: I had a detailed discussion with the patient and/or guardian regarding the historical points, exam findings, and any diagnostic results supporting the discharge/admit diagnosis, radiology results, the need for outpatient follow up, a orthopedic surgeon, to return to the emergency department if symptoms worsen or persist or if there are any questions or concerns that arise at home. 07/03 18:51 Order name: Ankle Right 3 View XRAY; Complete Time: 19:32 kb 07/03 18:51 Order name: Foot Right 3 View XRAY; Complete Time: 19:34 kb 07/03 18:51 Order name: Ice pack; Complete Time: 19:21 kb 07/03 19:40 Order name: Short Leg Splint 07/03 19:40 Order name: Crutch Training kb Administered Medications: 19:32 Drug: HYDROcodone-acetaminophen PO 5 mg-325 mg 2 tabs PO once Route: PO; cm10 19:32 Drug: Ketorolac IM 30 mg IM once Route: IM; Site: right gluteus; cm10 Disposition Summary: 07/03/23 19:50 Discharge Ordered Notes: Location: Home kb Condition: Stable kb Diagnosis - Sprain of ankle kb Followup: kb - With: Emergency Department - When: As needed - Reason: Worsening of condition Followup: kb - With: Private Physician - When: 2 - 3 days - Reason: Recheck today's complaints, Continuance of care, Re-evaluation by your physician Discharge Instructions: - Discharge Summary Sheet kb - Ankle Sprain, [id number] kb Forms: - Medication Reconciliation Form kb - Thank You Letter kb - Antibiotic Education kb - Prescription Opioid Use kb - Patient Portal Instructions kb - Leadership Thank You Letter kb Prescriptions: - Diclofenac Sodium 75 mg Oral tablet, delayed release (enteric coated) - take 1 tablet ORAL route 2 times per day As needed; 30 tablet; Refills: 0, kb Product Selection Permitted Signatures: Dispatcher Merchant View Luz Elena King, RN TRAINING-C RN TRAINING-Ckb Yana Shah, RN RN cm10
--- NOTE | 2023-07-03 19:51 | ER ---
Nurse's Notes [facility] Name: Trisha Ashton Age: 52 yrs Sex: Female : 1970 Arrival Date: 07/03/2023 Time: 18:46 Bed 10 Private MD: Diagnosis: Sprain of ankle Presentation: 07/03 18:49 Chief complaint: Patient states: She was walking her dog and the dog tackled her. Pt cm10 reports pain in her right foot and ankle. Pt states that when she fell her foot twisted. Coronavirus screen: Vaccine status: Patient reports being unvaccinated. Client denies travel out of the [place] in the last 14 days. Ebola Screen: Patient denies travel to an Ebola-affected area in the 21 days before illness onset. No symptoms or risks identified at this time. Initial Sepsis Screen: Does the patient meet any 2 criteria? No. Patient's initial sepsis screen is negative. Does the patient have a suspected source of infection? No. Patient's initial sepsis screen is negative. Risk Assessment: Do you want to hurt yourself or someone else? Patient reports no desire to harm self or others. Onset of symptoms was July 03, 2023. 18:49 Method Of Arrival: Wheelchair cm10 18:49 Acuity: GARRETT 4 cm10 Triage Assessment: 19:33 General: Appears uncomfortable, Behavior is cooperative, anxious, restless. Pain: cm10 Complains of pain in Right ankle. Neuro: No deficits noted. Level of Consciousness is awake, alert, obeys commands, Oriented to person, place, time, situation. Respiratory: No deficits noted. Airway is patent Respiratory effort is even, unlabored, Respiratory pattern is regular, symmetrical. GI: No deficits noted. No signs and/or symptoms were reported involving the gastrointestinal system. : No deficits noted. No signs and/or symptoms were reported regarding the genitourinary system. Derm: No deficits noted. No signs and/or symptoms reported regarding the dermatologic system. Skin is intact, Skin is pink, warm \T\ dry. Musculoskeletal: Swelling present in Right Ankle. Historical: - Allergies: 18:50 Bactrim; cm10 18:50 Morphine; cm10 - PMHx: 18:50 Cancer; pt in remission for one year now; chronic L shoulder pain; degenerative spine; cm10 Hypertensive disorder; neuropathy; - PSHx: 18:50 Ankle; colon resection; cm10 - Immunization history:: Adult Immunizations unknown. - Social history:: Smoking status: Patient denies any tobacco usage or history of. Screenin:34 [facility] ED Fall Risk Assessment (Adult) History of falling in the last 3 months, cm10 including since admission Yes- single mechanical fall (1 pt) Confusion or Disorientation No (0 pts) Intoxicated or Sedated No (0 pts) Impaired Gait Yes (1 pt) Mobility Assist Device Used Yes (1 pt) Altered Elimination No (0 pt) Score/Fall Risk Level 3 or more points = High Risk Oriented to surroundings, Maintained a safe environment, Hourly rounding (assess needs \T\ fall precautionary measures) done. Abuse screen: Denies threats or abuse. Denies injuries from another. Nutritional screening: No deficits noted. Tuberculosis screening: No symptoms or risk factors identified. Vital Signs: 18:49 BP 142 / 97; Pulse 97; Resp 18; Temp 97.1; Pulse Ox 99% on R/A; Weight 97.52 kg; Height cm10 5 ft. 5 in. ; Pain 10/10; 20:03 BP 140 / 94; Pulse 94; Resp 18; Pulse Ox 99% ; cp4 18:49 Body Mass Index 35.78 (97.52 kg, 165.1 cm) cm10 18:49 Pain Scale: Adult cm10 ED Course: 18:49 Patient arrived in ED. cm10 18:50 Luz Elena Powers [facility]C [facility] kb 18:50 Ananda Mead MD is Attending Physician. kb 18:50 Triage completed. cm10 18:51 Arm band placed on Patient placed in an exam room, on a stretcher. cm10 19:16 Ankle Right 3 View XRAY In Process Unspecified. EDMS 19:16 Foot Right 3 View XRAY In Process Unspecified. EDMS 19:34 Patient has correct armband on for positive identification. Bed in low position. Call cm10 light in reach. Side rails up X2. Provided Education on: ER process and procedures.. 20:03 Anna Morton is Primary Nurse. cp4 20:04 No provider procedures requiring assistance completed. Patient did not have IV access cp4 during this emergency room visit. Administered Medications: 19:32 Drug: HYDROcodone-acetaminophen PO 5 mg-325 mg 2 tabs PO once Route: PO; cm10 19:32 Drug: Ketorolac IM 30 mg IM once Route: IM; Site: right gluteus; cm10 Medication: 19:34 VIS not applicable for this client. cm10 Outcome: 19:50 Discharge ordered by . lance 20:04 Discharged to home ambulatory, with crutches, cp4 20:04 Condition: stable 20:04 Discharge instructions given to patient, Instructed on discharge instructions, follow up and referral plans. medication usage, Demonstrated understanding of instructions, follow-up care, medications, Prescriptions given X 1, 20:05 Patient left the ED. cp4 Signatures: Dispatcher [employer] EDMS Luz lEena Powers, Yana Edouard RN RN cm10 Anna Morton cp4
[2023-07-03 23:00] VITALS: TEMP 97.1; O2SAT 99
[2023-07-03 23:03] VITALS: BP 140/94
== END 2023-07-03 20:05 | disposition home or self-care (01) ==
LOC: ER 18:46
DX: S93.401A Sprain of unspecified ligament of right ankle, initial encounter (principal)

== ENCOUNTER 2025-04-14 08:12 | Emergency (ER) | payer BC ==
--- OUTSIDE RECORDS SUMMARY | 2025-04-14 08:15 | XMS REPORT | Clinical Summary ---
Author Name Unknown Organization [facility] Address [address] [place] [address] Care Team Providers Care Plant Propagator Name Role Phone Dimple Kenyon MD Unavailable [phone] Gary Peres MD Primary Care Provider [phone] Allergies Active Allergy Reactions Criticality Noted Date [...] methoprim Diarrhea,Nausea And Vomiting Medium 10/07/2014 Medications * This document contains information received from the source organization and may not represent a complete record from that organization. gabapentin (NEURONTIN) 300 mg capsule Take 3 capsules by mouth 3 (three) times a day. 7 Active HYDROcodone-acet aminophen (NORCO) 10 mg-325 mg per tablet Take 2 tablets by mouth as needed. Last took norco Yesterday 0 7 Active tiZANidine (ZANAFLEX) 2 MG capsule Take 1 capsule by mouth as needed. 0 6 Active ibuprofen (ADVIL,MOTRIN) 800 mg tablet Take 1 tablet by mouth as needed. 0 6 Active fluticasone-marko nterol (BREO ELLIPTA) 200-25 mcg/dose Inhale 1 puff by mouth daily. Active clobetasol (TEMOVATE) 0.05% ointment Apply 1 application topically to affected area(s) as needed. Active betamethasone dipropionate (DIPROLENE) 0.05 % cream Apply 1 application topically to affected area(s) as needed. 0 8 Active amLODIPine (NORVASC) 5 mg tablet Take 5 mg by mouth daily. 9 Active cholecalciferol, vitamin D3, (VITAMIN D3) 50,000 units tab tablet Take 1 tablet by mouth once a week. 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 PCP - General Gastrointestinal Medical Oncology 10/08/16
[2025-04-14] MEDS ORDERED: ONDANSETRON 4 MG/2 ML VIAL ONE (08:35)
[2025-04-14] MEDS ORDERED: KETOROLAC 30 MG/ML INJ ONE (08:35)
[2025-04-14] MEDS ORDERED: NA CHLORIDE 0.9% 1,000 ML ONE (08:36)
[2025-04-14] MEDS ORDERED: FAMOTIDINE 20 MG/2 ML VIAL IV ONE (08:36)
[2025-04-14 08:57] LABS: Absolute Lymphocytes (CBC) 3.3 K/uL (0.7-4.9); Hematocrit 41.6 % (36.0-45.0); Hemoglobin 13.6 g/dL (12.0-15.0); MCH 26.6 pg (27.0-35.0); MCHC 32.7 g/dL (32.0-36.0); MCV 81.4 fL (80-100); MPV 8.0 fL (7.6-11.3); Nucleated RBC Absolute Count 0.0 (0-0); Nucleated Red Blood Cells % 0.0 % (0-0); RBC Red Blood Cell Count 5.11 M/uL (3.86-4.86); White Blood Count 15.10 thou/uL (4.3-10.9)
--- NOTE | 2025-04-14 09:06 | RAD REPORT ---
EXAM: Right upper quadrant ultrasound. CLINICAL HISTORY: ABD PAIN COMPARISON: None. FINDINGS: Gallbladder: Multiple mobile gallstones. Bile ducts: No intrahepatic or extrahepatic biliary dilatation. Common bile duct measures 4 mm. Limited imaging of the liver shows no concerning finding. IMPRESSION: Cholelithiasis.
[2025-04-14 09:15] LABS: ALT/SGPT 20.0 U/L (13-56); AST/SGOT 16.0 U/L (15-37); Albumin 3.5 g/dL (3.4-5.0); Albumin/Globulin Ratio 0.9 (1.1-1.8); Alkaline Phosphatase 111.0 U/L (45-117); Anion Gap 10.4 mEq/L (5.0-15.0); BUN Blood Urea Nitrogen 11.0 mg/dL (7-18); Globulin 4.0 g/dL (2.3-3.5); Glucose Level 123.0 mg/dL (74-106); Lipase 25.0 U/L (13-75); Potassium 3.4 mEq/L (3.5-5.1)
[2025-04-14] MEDS ORDERED: FENTANYL CITR 100 MCG/2 ML ONE (09:16)
--- NOTE | 2025-04-14 10:31 | EDPHYS ---
Physician Documentation [facility] Name: Trisha Ashton Age: 54 yrs Sex: Female : 1970 Arrival Date: 04/14/2025 Time: 08:12 Bed 4 Private MD: ED Physician Ananda Mead HPI: 04/14 08:31 This 54 yrs old Black Female presents to ER via Ambulatory with complaints of Abdominal kb Pain - UPPER, Back Pain. 08:31 Patient is a 54-year-old female who presents for upper abdominal pain that started last kb night. Reports nausea. Denies fever. States she has had this happen in the past due to gastritis. States she ate too late last night because she got out of class late so that is what she thinks exacerbated this pain.. Historical: - Allergies: 08:25 Bactrim; ll1 08:25 Morphine; ll1 - PMHx: 08:25 chronic L shoulder pain; degenerative spine; Hypertensive disorder; neuropathy; colon ll1 CA (hysterectomy); gastritis (hysterectomy); - PSHx: 08:25 Ankle; colon resection; hysterectomy (re); ll1 - Immunization history:: Adult Immunizations up to date. - Infectious Disease History:: Denies. - Social history:: Smoking status: Patient denies any tobacco usage or history of. ROS: 08:31 Constitutional: As per HPI kb Exam: 08:31 Constitutional: This is a well developed, well nourished patient who is awake, alert, kb and in no acute distress. Head/Face: Normocephalic, atraumatic. ENT: Moist Mucous membranes Cardiovascular: Regular rate Respiratory: Respirations even and unlabored. No increased work of breathing. Talking in full sentences Skin: Warm, dry with normal turgor. Normal color. MS/ Extremity: Pulses equal, no cyanosis. Neurovascular intact. Full, normal range of motion. Neuro: Awake and alert, GCS 15, oriented to person, place, time, and situation. 08:31 Abdomen/GI: Inspection: abdomen appears normal, Bowel sounds: normal, Palpation: soft, in all quadrants, mild abdominal tenderness, in the epigastric area and right upper quadrant, Vital Signs: 08:20 Weight 86.18 kg; Height 5 ft. 5 in. ; Pain 10/10; ll1 08:31 BP 152 / 78; Pulse 98; Resp 20; Temp 97.7; Pulse Ox 100% on R/A; iw 08:20 Body Mass Index 31.62 (86.18 kg, 165.1 cm) ll1 08:20 Pain Scale: Adult ll1 MDM: 08:16 Medical Screening Exam initiated kb 08:31 Data reviewed: vital signs, nurses notes. kb 10:29 Differential diagnosis: cholecystitis, Cholelithiasis, gastritis, non-specific abd kb pain, pancreatitis. Counseling: I had a detailed discussion with the patient and/or guardian regarding the historical points, exam findings, and any diagnostic results supporting the discharge/admit diagnosis, lab results, radiology results, the need for outpatient follow up, a general surgeon, a needle straightener, to return to the emergency department if symptoms worsen or persist or if there are any questions or concerns that arise at home. 04/14 08:20 Order name: CBC with Diff; Complete Time: 09:07 kb 04/14 08:20 Order name: CMP; Complete Time: 09:15 kb 04/14 08:20 Order name: Lipase; Complete Time: 09:15 kb 04/14 08:20 Order name: Abdomen Limited US; Complete Time: 09:07 kb 04/14 08:20 Order name: IV Saline Lock; Complete Time: 08:54 kb 04/14 08:20 Order name: Labs collected and sent; Complete Time: 08:54 kb Administered Medications: 08:50 Drug: Famotidine IVP 20 mg IVP once; dilute with 10 mL 0.9% NaCl; give over 2 minutes hb Route: IVP; Site: right forearm; 09:25 Follow up: Response: No adverse reaction hb 08:50 Drug: TORadol - Ketorolac IVP 15 mg IVP once Route: IVP; Site: right forearm; hb 09:25 Follow up: Response: No adverse reaction hb 08:50 Drug: Ondansetron IVP 4 mg IVP once; over 2 minutes Route: IVP; Site: right forearm; hb 09:25 Follow up: Response: No adverse reaction hb 08:50 Drug: NS 0.9% IV 1000 ml IV at 1 bolus Per protocol; to be given as a bolus over 60 hb minutes Route: IV; Rate: 1 bolus; Site: right forearm; 10:00 Follow up: IV Status: Completed infusion iw 09:25 Drug: fentaNYL (PF) IVP 50 mcg IVP once Route: IVP; Site: right forearm; hb 10:30 Follow up: Response: No adverse reaction; Pain is decreased iw Disposition Summary: 04/14/25 10:30 Discharge Ordered Notes: Location: Home kb Condition: Stable kb Diagnosis - Other cholelithiasis without obstruction kb Followup: kb - With: Emergency Department - When: As needed - Reason: Worsening of condition Followup: kb - With: Private Physician - When: 2 - 3 days - Reason: Recheck today's complaints, Continuance of care, Re-evaluation by your physician Discharge Instructions: - Discharge Summary Sheet kb - Cholelithiasis, [id number] kb Forms: - Medication Reconciliation Form kb - Antibiotic Education kb - Prescription Opioid Use kb - Patient Portal Instructions kb - Leadership Thank You Letter kb Prescriptions: - Zofran 4 mg Oral tablet - take 1 tablet ORAL route every 6 hours As needed; 12 tablet; Refills: 0, kb Product Selection Permitted - Diclofenac Sodium 75 mg Oral tablet, delayed release (enteric coated) - take 1 tablet ORAL route 2 times per day As needed; 30 tablet; Refills: 0, kb Product Selection Permitted Signatures: Dispatcher MedHost EDLuz Elena Louie, BOX ESTIMATOR-C BOX ESTIMATOR-Ckb Virginia Antony, RN RN Homer Gonzalez RN RN ll1 Asuncion Foley RN Corrections: (The following items were deleted from the chart) 08:21 08:21 CBC+H.LAB.BRZ ordered. EDMS EDMS 08:21 08:21 COMPREHENSIVE METABOLIC PANEL+C.LAB.BRZ ordered. EDMS EDMS 08:21 08:21 LIPASE+C.LAB.BRZ ordered. EDMS EDMS 08:21 08:21 Abdomen Limited+US.RAD.BRZ ordered. EDMS EDMS
--- NOTE | 2025-04-14 10:31 | ER ---
Nurse's Notes [facility] Name: Trisha Ashton Age: 54 yrs Sex: Female : 1970 Arrival Date: 04/14/2025 Time: 08:12 Bed 4 Private MD: Diagnosis: Other cholelithiasis without obstruction Presentation: 04/14 08:20 Chief complaint: Patient states: Upper abdominal pain started last night. Coronavirus ll1 screen: Client denies travel out of the [place] in the last 14 days. At this time, the client does not indicate any symptoms associated with coronavirus-19. Ebola Screen: Patient denies travel to an Ebola-affected area in the 21 days before illness onset. Initial Sepsis Screen: Does the patient meet any 2 criteria? No. Patient's initial sepsis screen is negative. Does the patient have a suspected source of infection? No. Patient's initial sepsis screen is negative. Risk Assessment: Do you want to hurt yourself or someone else? Patient reports no desire to harm self or others. Onset of symptoms was April 13, 2025. 08:20 Method Of Arrival: Ambulatory ll1 08:20 Acuity: GARRETT 3 ll1 Historical: - Allergies: 08:25 Bactrim; ll1 08:25 Morphine; ll1 - PMHx: 08:25 chronic L shoulder pain; degenerative spine; Hypertensive disorder; neuropathy; colon ll1 CA (hysterectomy); gastritis (hysterectomy); - PSHx: 08:25 Ankle; colon resection; hysterectomy (re); ll1 - Immunization history:: Adult Immunizations up to date. - Infectious Disease History:: Denies. - Social history:: Smoking status: Patient denies any tobacco usage or history of. Screenin:33 [facility] ED Fall Risk Assessment (Adult) History of falling in the last 3 months, iw including since admission No falls in past 3 months (0 pts) Confusion or Disorientation No (0 pts) Intoxicated or Sedated No (0 pts) Impaired Gait No (0 pts) Mobility Assist Device Used No (0 pt) Altered Elimination No (0 pt) Score/Fall Risk Level 0 - 2 = Low Risk Oriented to surroundings, Maintained a safe environment. Abuse screen: Denies threats or abuse. Denies injuries from another. Nutritional screening: No deficits noted. Tuberculosis screening: No symptoms or risk factors identified. Assessment: 08:32 General: Appears uncomfortable, Behavior is cooperative. Pain: Complains of pain in iw epigastric area Pain currently is 9 out of 10 on a pain scale. Neuro: Level of Consciousness is awake, alert, obeys commands, Oriented to person, place, time, Moves all extremities. Cardiovascular: Patient's skin is warm and dry. Respiratory: Respiratory effort is even, unlabored, Respiratory pattern is regular, symmetrical. GI: Abdomen is non-distended, Abd is soft in right upper quadrant and left upper quadrant. 09:25 Reassessment: Pt unchanged, MARKETING RECRUITER Luz Elena notified, medicated as ordered. hb 10:58 Reassessment: Patient appears in no apparent distress at this time. Patient states hb feeling better. Patient states symptoms have improved. Vital Signs: 08:20 Weight 86.18 kg; Height 5 ft. 5 in. ; Pain 10/10; ll1 08:31 BP 152 / 78; Pulse 98; Resp 20; Temp 97.7; Pulse Ox 100% on R/A; iw 08:20 Body Mass Index 31.62 (86.18 kg, 165.1 cm) ll1 08:20 Pain Scale: Adult ll1 ED Course: 08:15 Patient arrived in ED. cj3 08:16 Luz Elena Powers FNP-C [facility]. kb 08:16 Ananda Mead MD is Attending Physician. kb 08:16 Arm band placed on Patient placed in an exam room, on a stretcher. ll1 08:26 Asuncion Foley, RN is Primary Nurse. iw 08:27 Triage completed. ll1 08:33 No provider procedures requiring assistance completed. iw 08:54 CBC with Diff Sent. hb 08:54 CMP Sent. hb 08:54 Lipase Sent. hb 08:55 Accessed peripheral vein via ultrasound, utilizing dynamic ultrasound technique using hb per hospital protocol. Clean \T\ dry. Dressing intact. Good blood return. Flushes easily. 20g RFA. 09:00 Patient has correct armband on for positive identification. Bed in low position. Call hb light in reach. Provided Education on: tests, result times, call light . 09:03 Abdomen Limited US In Process Unspecified. EDMS 10:59 IV discontinued, intact, bleeding controlled, No redness/swelling at site. Pressure hb dressing applied. Administered Medications: 08:50 Drug: Famotidine IVP 20 mg IVP once; dilute with 10 mL 0.9% NaCl; give over 2 minutes hb Route: IVP; Site: right forearm; 09:25 Follow up: Response: No adverse reaction hb 08:50 Drug: TORadol - Ketorolac IVP 15 mg IVP once Route: IVP; Site: right forearm; hb 09:25 Follow up: Response: No adverse reaction hb 08:50 Drug: Ondansetron IVP 4 mg IVP once; over 2 minutes Route: IVP; Site: right forearm; hb 09:25 Follow up: Response: No adverse reaction hb 08:50 Drug: NS 0.9% IV 1000 ml IV at 1 bolus Per protocol; to be given as a bolus over 60 hb minutes Route: IV; Rate: 1 bolus; Site: right forearm; 10:00 Follow up: IV Status: Completed infusion iw 09:25 Drug: fentaNYL (PF) IVP 50 mcg IVP once Route: IVP; Site: right forearm; hb 10:30 Follow up: Response: No adverse reaction; Pain is decreased iw Medication: 08:33 VIS not applicable for this client. iw Outcome: 10:30 Discharge ordered by MD. kb 10:59 Discharged to home ambulatory, with significant other, hb 10:59 Condition: stable 10:59 Discharge instructions given to patient, significant other, Instructed on discharge instructions, follow up and referral plans. medication usage, Demonstrated understanding of instructions, follow-up care, medications, Prescriptions given X 2, 10:59 Patient left the ED. hb Signatures: Dispatcher [employer] EDCT Luz Elena Powers, CIRCUIT CLERK-C CIRCUIT CLERK-Asuncion Saini, JENNIFER RODRIGUEZ Virginia Antony RN RN Homer Gonzalez RN RN ll1 Ronda Grissom 3
[2025-04-14 11:05] VITALS: BP 152/78; TEMP 97.7; O2SAT 100
== END 2025-04-14 10:59 | disposition home or self-care (01) ==
LOC: ER 08:12
DX: K80.80 Other cholelithiasis without obstruction (principal)
CPT/HCPCS: 96361; 85025; 36415; 83690; 80053; 76705; 96375; 96374; 99284; J3010; J2405; J7030; J1885